=== PATIENT | male | born 1935 | race Caucasian/White ===

== ENCOUNTER 2016-07-07 18:15 | Inpatient (IN) | payer MEDICARE ==
--- NOTE | ~2016-07-07 | CR72 ---
[facility] A Service of [facility] & [facility] RADIOLOGY TEXT RESULTS PATIENT: KELSIE LESLIE LOCATION: [facility] 304- : 37 UNIT #: [id number] AGE: [address]: Raji Lopez MD SEX: M ORDER DR: [id number] [facility] [address] [place], [place] [address] [id number] I MR#: [id number] Acc #: [id number] NAME: KELSIE LESLIE : 1935 SEX: M STUDY DATE/TIME: 07/09/2016 15:48 UNIT: [address] ROOM: [facility] STUDY DESCRIPTION: CR Chest Single View Portable Attending Physician: Raji Lopez M.D. Referring Physician: Korey Bravo M.D. Ordering Physician: Patito Lynch M.D. Primary Care Physician: Korey Bravo M.D. MEDICAL IMAGING REPORT This report is preliminary unless electronic signature is present EXAM Portable chest INDICATION Evaluate for pneumothorax following right thoracentesis. This was performed today. FINDINGS Cardiomegaly and vascular congestion are noted, patient has undergone right thoracentesis. Small amount of residual right pleural fluid is present. I do not see any evidence of pneumothorax. There appears to be a nodule at the left lung base, somewhat obscured by overlying atelectasis. Left-sided pacemaker is present. Again no pneumothorax is seen. Dictated by... Patito Lynch M.D. THIS IS AN ELECTRONICALLY VERIFIED REPORT Patito Lynch M.D. at 07/12/2016 5:12 PM AFF/rnr TD: 07/09/2016 21:57 JOB #: [id number] MEDICAL IMAGING REPORT COPY
--- NOTE | ~2016-07-07 | CR72 ---
[facility] A Service of [facility] RADIOLOGY TEXT RESULTS PATIENT: KELSIE LESLIE LOCATION: [facility] 304-01 : 37 UNIT #: [id number] AGE: [address]: Raji Lopez MD SEX: M ORDER DR: [id number] [facility] [address] [place], [place] [address] [id number] MR#: [id number] Acc #: [id number] NAME: KELSIE LESLIE : 1935 SEX: M STUDY DATE/TIME: 07/07/2016 19:25 UNIT: [facility] ROOM: STUDY DESCRIPTION: CR Chest Single View Portable Attending Physician: Tim Pacheco D.O. Referring Physician: Korey Bravo M.D. Ordering Physician: Tim Pacheco D.O. Primary Care Physician: Korey Bravo M.D. MEDICAL IMAGING REPORT This report is preliminary unless electronic signature is present EXAM Portable chest 07/07/2016 HISTORY 81-year-old male with shortness of air and cough for a few days. COMPARISON STUDIES Chest 01/09/2016. FINDINGS 3 frontal views of the chest were performed. There is stable cardiomegaly. There is mild bibasilar atelectasis. A small amount of pleural fluid noted along the right minor fissure. A small right pleural effusion is not excluded. No pneumothorax. Mediastinal and pulmonary vasculature are within normal limits. There are mild bilateral interstitial opacities, and early congestive failure not excluded. Left-sided pacing complex. IMPRESSION Cardiomegaly with hazy mild bilateral interstitial opacities. Early congestive failure not excluded in the appropriate clinical setting. There is a suspected trace right pleural effusion with a small amount of pleural fluid in the right minor fissure. Dictated by... Nolan Lockhart M.D. THIS IS AN ELECTRONICALLY VERIFIED REPORT Nolan Lockhart M.D. at 07/08/2016 4:14 PM JFRACISCO/pcl [facility] A Service of [facility] RADIOLOGY TEXT RESULTS PATIENT: KELSIE LESLIE LOCATION: [facility] 304-01 : 37 UNIT #: [id number] AGE: [address]: Raji Lopez MD SEX: M ORDER DR: TD: 07/07/2016 21:47 JOB #: [id number] MEDICAL IMAGING REPORT COPY
--- NOTE | ~2016-07-07 | CO ---
Unit #: [id number] #: [id number] Patient: KELSIE LESLIE [id number] [address] [place], [place] [address] [id number] I MR#: [id number] NAME: KELSIE LESLIE ROOM: 304 Age: 81 Sex: M Admission Date: 07/07/2016 : 1935 Attending Physician: Raji Lopez M.D. Primary Care Physician: Korey Bravo M.D. Requesting Physician: Korey Bravo M.D. CONSULTATION REPORT CHIEF COMPLAINT Left upper lobe 3.4 cm mass positive for non-small lung cancer, adenocarcinoma that is a 7 mm mass in the left lower lobe, multiple medical problems. HISTORY OF PRESENT ILLNESS This is a 81-year-old male who started smoking at the age of 11. He had been smoking one pack per day for almost 70 years. He came to the hospital, was short of breath, dyspnea on exertion. CT of the chest showed right-sided middle infiltrate pneumonia, pleural effusion. He had a thoracentesis where 1.4 L was taken, pathology negative. On the left side there is a 3.4 x 2.4 cm mass in the left lower lobe. There is a 7 mm mass in the left upper lobe. Biopsy of the left lower lobe mass is positive for adenocarcinoma, I spoke to the pathologist. At present, he is improving and he wants to go home. He has atrial fibrillation, taking Coumadin for a long time. He also has a right lower extremity bleeding, it is unsupported. His anticoagulation is off. He is planning to restart on low dose Eliquis. He had on and off hemoptysis but is stable. CBC showed WBC 14.8, hemoglobin 8.7, MCV 79, platelets 16. His creatinine is 0.7. LFTs are normal. Iron studies are pending. At present he is comfortable, short of breath is stable. REVIEW OF SYSTEMS CONSTITUTIONAL: No fever, no chills, no sweats, no weight loss. EYES: No visual symptoms. EARS, NOSE AND THROAT: There is no runny nose or sore throat or difficulty hearing. CARDIOVASCULAR: No chest pain. No shortness of breath. No palpitations. No orthopnea. No PND. RESPIRATORY: As mentioned above. GASTROINTESTINAL: No nausea, vomiting, diarrhea, constipation, hematochezia or melena. GENITOURINARY: No urinary frequency, hesitancy or urgency. No blood in the urine. MUSCULOSKELETAL: No muscle or joint pain. NEUROLOGIC: No headache. No numbness or tingling. No weakness. No seizure. PSYCHIATRIC: No anxiety, depression or mood disturbance. Unit #: [id number] #: [id number] Patient: KELSIE LESLIE ENDOCRINE: No excessive urination or thirst. DERMATOLOGIC: No rash or change in the skin. ALLERGIC/IMMUNOLOGIC: No symptoms. HEMATOLOGIC/LYMPHATIC: Denies any symptoms. PAST MEDICAL HISTORY 1. COPD. 2. Congestive heart failure. 3. Atrial fibrillation. 4. Pacemaker. 5. Long-term anticoagulation. ALLERGIES AND MEDICINE He is not sure. SOCIAL HISTORY As mentioned above, started smoking at the age of 11. Had been smoking one pack per day for almost 70 years. Denied alcohol abuse. 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 PAST SURGICAL HISTORY He has a colectomy. He has a resection of a superficial bladder cancer. No sign of disease. FAMILY HISTORY Mother had a cancer. PHYSICAL EXAMINATION VITAL SIGNS: Afebrile, pulse 76, respiratory rate 17, O2 saturations on 4 L 97%, blood pressure 140/70. GENERAL: Patient is comfortable. ECOG is 0. The patient is pleasant. HEENT: Moist mucosa. Pupils equally reactive to light. Extraocular muscles intact. Sclerae anicteric. No obvious bleeding from nasal mucosa or oral mucosa. Scalp normal. Hearing normal. NECK: No JVD. No lymphadenopathy. LYMPHATIC/HEMATOLOGIC: There is no palpable adenopathy in the neck, axilla or inguinal area. CARDIOVASCULAR: S1, S2. Regular rate and rhythm. No S3 or S4. RESPIRATORY: Chest symmetrical, normal. Clear to auscultation bilaterally. No wheezes, no rales, no rhonchi. No dullness to percussion. ABDOMEN/GASTROINTESTINAL: Abdomen is soft, nontender, nondistended. No hepatosplenomegaly. EXTREMITIES: There is no clubbing, no cyanosis, no edema. No varicose veins. NEUROLOGICAL: Patient is alert, awake and oriented x3. Cranial nerves II-XII are intact. Sensory grossly intact. Motor is 4/5 in all four extremities. Gait is normal. Station is normal. Language is normal. Memory is normal. DTRs +2 in all four extremities. MUSCULOSKELETAL: No joint swelling. No bony tenderness. No muscle tenderness. SKIN: No petechiae, no rash, no ecchymosis. PSYCHIATRIC: No anxiety. No delusions or hallucinations. There is no agitation. Eye contact is normal. Affect is appropriate. There is no flight of ideas. DIAGNOSTIC STUDIES LABORATORY STUDIES: As mentioned above. Unit #: [id number] #: [id number] Patient: KELSIE LESLIE IMAGING STUDIES: Study mentioned above. PATHOLOGY: Mentioned above. ASSESSMENT AND PLAN This is a 81-year-old male who has the following active issues: 1. Non-small cell lung cancer: The patient has two masses in the left side of the lung. Biopsy of the dominant left lower lobe mass is adenocarcinoma. There is another lesion in the left upper lobe, it is 7 mm. The patient looks like two independent primaries. I had extensive discussion with patient and Dr. Kaur. As an outpatient we will do PET scan and also MRI of the brain. He will benefit from STRDP. He cannot tolerate chemotherapy. He is not a candidate for surgery. He weighs about 325 pounds and he has end stage COPD. His prognosis is guarded. 2. Anemia: MCV is low. Will check iron studies. 3. Other conditions: The patient has atrial fibrillation. He has a right lower extremity bleeding. He has some hemoptysis. I talked to the primary care and will start him on Eliquis low dose 2.5 mg b.i.d., in the future will increase. He has COPD, pneumonia, CHF, at present is stable. 1. Dictated by... Karla Henley M.D. Becky TD: 07/13/2016 13:47 JOB #: [id number] CONSULTATION REPORT X Karla Henley MD CONSULTATION REPORT
--- NOTE | ~2016-07-07 | DS ---
Unit #: [id number] #: [id number] Patient: KELSIE LESLIE [id number] [address] [place], [place] [address] [id number] I MR#: [id number] NAME: KELSIE LESLIE ROOM: 304 Age: 81 Sex: M Admission Date: 07/07/2016 : 1935 Discharge Date: Attending Physician: Raji Lopez M.D. Referring Physician: Korey Bravo M.D. Primary Care Physician: Korey Bravo M.D. DISCHARGE SUMMARY ADDENDUM Kindly note, there is a discharge summary dictated by Dr. Dave Kelesy on the and this is an addendum to the discharge summary. In the last few days, the patient got a lung biopsy done. The biopsy came back as positive for adenocarcinoma. Oncology was consulted. They evaluated the patient and recommended he requires radiation, not a candidate for any surgery or chemotherapy. Radiologist/oncologist also evaluated the patient. The plan is to get the patient outpatient PET scan, MRI, and then follow with oncology and radiation oncology to plan further management for his lung cancer. All the discharge instructions were explained in detail to the patient. I spoke with the radiation oncologist this morning and outpatient followup arrangements are being made by oncology and radiation oncology. I discussed the plan with the patient and he is agreeable to go to the rehab. PHYSICAL EXAMINATION On the day of the discharge, his physical examination: VITAL SIGNS: Temperature 97.9, pulse rate 71, respiratory rate 20, blood pressure 115/63. GENERAL: Patient is alert and oriented x3, lying in the bed, no acute distress. HEENT: Normocephalic and atraumatic. No icterus. PERRLA. Extraocular muscles intact. NECK: Supple. No JVD. HEART: S1, S2. Regular rate and rhythm. CHEST: Bilateral equal air entry. Bilateral rhonchi. ABDOMEN: Soft, nontender. EXTREMITIES: Trace edema. Normal pulses. DISCHARGE MEDICATIONS 1. ProAir q.4 p.r.n. shortness of breath. 2. Symbicort two puffs twice daily. 3. Flomax 0.4 mg at bedtime. 4. Tylenol 650 q.6 p.r.n. 5. Mupirocin 22 g topical to be applied to the right ankle. 6. Gabapentin 600 mg p.o. twice a day. 7. Paxil 40 mg daily. 8. Zofran 4 mg q.6 p.r.n. nausea and vomiting. 9. Nicotine 21 mg topically daily. 10. Klonopin 0.5 mg p.o. q.8 hours. 11. Metoprolol 25 mg p.o. twice a day. 12. Breo Ellipta 100/25 mcg inhalation one puff daily. 13. Lasix 20 mg in the morning. Unit #: [id number] #: [id number] Patient: KELSIE LESLIE 14. Humibid 600 mg p.o. twice a day. 15. Zocor 20 mg at bedtime. 16. Proscar 5 mg in the morning. 17. Aspirin 81 mg daily. 18. Protonix 40 mg daily. 19. KCl 20 mEq p.o. twice a day. 20. Eliquis 5 mg p.o. twice a day. PLAN The patient is instructed to follow with oncology and radiation oncology, primary care, and pulmonary as an outpatient. I spoke with the patient case manager and she is working on the arrangements for the transfer. Total time spent in his care, 35 minutes. Dictated by... Raji Lopez M.D. Carol TD: 07/14/2016 14:38 JOB #: [id number] DISCHARGE SUMMARY X X DISCHARGE SUMMARY
--- NOTE | ~2016-07-07 | HP ---
Unit #: [id number] #: [id number] Patient: KELSIE LESLIE [id number] [address] [place], [place] [address] [id number] I MR#: [id number] NAME: KELSIE LESLIE ROOM: 64817 Age: 81 Sex: M Admission Date: 07/07/2016 : 1935 Attending Physician: Sandy Hammer M.D. Referring Physician: Korey Bravo M.D. Primary Care Physician: Korey Bravo M.D. HISTORY AND PHYSICAL CHIEF COMPLAINT Anemia with right calf hematoma, COPD exacerbation. HISTORY OF PRESENT ILLNESS This pleasant 81-year-old male with chronic atrial fibrillation, status post permanent pacemaker insertion, nonobstructive CAD, COPD, is admitted for increasing shortness of breath and right leg edema. Two weeks ago, the patient noted increasing bruising over his distal right lower extremity and discomfort. He has been more short of breath over the past week with bronchospasm and a deep cough productive of armstrong sputum. He was actually seen by Dr. Jacques last week who started new inhalers and plans for a CT scan of the chest. The patient presents to this emergency department where he has a hematoma over the right calf. Chest x-ray is suspicious for pneumonia versus congestive heart failure. He is also noted to be increasingly anemic with a hematocrit of 27.4 with microcytic indices. He is heme-negative from below, and urinalysis does not reveal hematuria. In the ER, he was given 125 mg of Solu-Medrol, 2 grams of Rocephin and doxycycline. PAST MEDICAL HISTORY 1. Nonobstructive coronary artery disease. Ejection fraction was normal in 2014. Patient has chronic atrial fibrillation is status post permanent pacemaker and is maintained on Coumadin. The patient tells me that Coumadin is to be discontinued and plans are for Eliquis to start in a few days. 2. Hyperlipidemia. 3. COPD. 4. Obstructive sleep apnea on CPAP. 5. Abdominal aortic aneurysm measuring 3.[address] scan September 2012. 6. Questionable history of hepatitis. 7. Gout. 8. Spinal stenosis. 9. BPH. 10. Invasive transitional cell bladder cancer diagnosed 2014. The patient underwent a TURBT of the bladder tumor again in September 2015. Reports a recent negative cystoscopy. 11. Admission in 2014 for erosive duodenitis. On colonoscopy, the patient was also noted to have three large polyps which were removed. ALLERGIES Claritin. HOME MEDICATIONS Unit #: [id number] #: [id number] Patient: KELSIE LESLIE 1. Klonopin 0.5 mg t.i.d. 2. Avodart 5 mg daily. 3. Lasix 20 mg q.a.m. 4. Metoprolol 25 mg b.i.d. 5. Protonix 40 mg daily. 6. Paxil 40 mg daily. 7. Potassium 20 mEq b.i.d. 8. Zocor 20 mg h.s. 9. Flomax 0.4 mg two tablets daily. 10. Coumadin which was discontinued today. 11. Incruse 62.5 mcg one puff daily. 12. Breo 100/25 daily. 13. ProAir q.i.d. p.r.n. 14. Neurontin 600 mg b.i.d. 15. Vitamin B6, calcium, fish oil, vitamin C, vitamin E, multivitamin. 16. Aspirin 81 mg Tuesday, Tuesday, and Tuesday. SOCIAL HISTORY The patient lives at assisted living. He has a 84-[id number]-yhfa history of smoking. He continues to smoke one pack per day of tobacco. Does not drink alcohol. Uses an electric wheelchair. FAMILY HISTORY CAD. REVIEW OF SYSTEMS Notable for shortness of breath, productive cough, increasing pain and swelling of the right leg, above-mentioned surgeries, DJD, right hip replacement as well, nonobstructive coronary artery disease, permanent pacemaker, atrial fibrillation, hyperlipidemia, COPD, AIDAN, aneurysm, gout, spinal stenosis, BPH, wound over the right ankle, immobilization syndrome, some diarrhea and bladder cancer. All other systems were reviewed and are negative. PHYSICAL EXAMINATION VITAL SIGNS: Temperature 98.1, pulse 60, respirations 16, blood pressure 113/50, O2 saturation 97% on 2 liters of oxygen. GENERAL: Very pleasant, obese 81-year-old male currently in no acute distress. HEENT: Eyes PERRLA. Extraocular muscles are intact. Pharynx benign with dry mucosal membranes. NECK: Supple without adenopathy or thyromegaly. Some elevation of the JVD noted. CHEST: Expiratory wheezes. HEART: Normal S1, S2 with no definite murmur. ABDOMEN: Bowel sounds are present. No definite hepatosplenomegaly, tenderness or masses. EXTREMITIES: Notable for edema of the right leg as compared to the left with a wound over the right lateral malleolus. Pedal pulses are diminished but present by Doppler. There is quite a bit of bruising of the distal right lower extremity with a right lateral calf hematoma. RECTAL: Heme-negative per the ER physician. NEUROLOGIC: Awake, alert, oriented. Cranial nerves are intact. Equal strength throughout but is quite weak on exam. DIAGNOSTIC STUDIES LABORATORY: Hematocrit 27.4 down from 30.5 in December 2015. MCV is 80. White blood cell count 11.6, platelet count 132. SMA-12 CO2 is 32, Unit #: [id number] #: [id number] Patient: KELSIE LESLIE albumin 3.2. BNP 217. Lactic acid normal. Cardiac markers are negative. INR 4.4, PTT 46.7. Urinalysis is unremarkable. IMAGING: Chest x-ray cardiomegaly, hazy, mild opacities bilaterally. Cannot exclude congestive heart failure. Small right pleural effusion. Doppler of the right leg is negative for DVT. CARDIOVASCULAR: EKG shows a paced ventricular rhythm, rate 60. ASSESSMENT 1. Right calf hematoma with mild Coumadin toxicity. Patient also has a wound over the right lateral malleolus. 2. Uuaca-gy-yqugwbu microcytic anemia, likely related to blood loss right leg. Patient was heme-negative on exam and urinalysis is negative for hematuria. 3. Increasing shortness of breath secondary to chronic obstructive pulmonary disease exacerbation which may represent community-acquired pneumonia versus bronchitis, rule out congestive heart failure. 4. Nonobstructive coronary artery disease with normal left ventricular function status post permanent pacemaker insertion for sick sinus syndrome and atrial fibrillation. 5. Obstructive sleep apnea on CPAP. 6. Tobacco use. 7. Peripheral vascular disease with abdominal aortic aneurysm. 8. Benign prostatic hypertrophy. 9. Spinal stenosis. PLAN 1. Vitamin K, discontinue Coumadin. Plans are to start Eliquis later this week per patient. Will monitor hemoglobin and hematocrit for now. 2. Steroids, antibiotics, check CT scan of the chest and consult Dr. Jacques. I will also write for DuoNeb. 3. One small dose of IV Lasix pending further workup. 4. Stool cultures. 5. Further workup and consultants depending on above. Dictated by Sandy Hammer M.D. AML/cs TD: 07/07/2016 23:24 JOB #: [id number] CC: Kiet HISTORY AND PHYSICAL X Sandy Hammer MD HISTORY AND PHYSICAL
--- NOTE | ~2016-07-07 | XA203 ---
[facility] A Service of [facility] & [facility] RADIOLOGY TEXT RESULTS PATIENT: KELSIE LESLIE LOCATION: [facility] 304- : 37 UNIT #: [id number] AGE: [address]: Raji Lopez MD SEX: M ORDER DR: [id number] [facility] [address] [place], [place] [address] [id number] I MR#: [id number] Acc #: [id number] NAME: KELSIE LESLIE : 1935 SEX: M STUDY DATE/TIME: 07/09/2016 16:15 UNIT: [facility] ROOM: [facility] STUDY DESCRIPTION: XA Thoracentesis Attending Physician: Raji Lopez M.D. Referring Physician: Korey Bravo M.D. Ordering Physician: Antione Jacques M.D. Primary Care Physician: Korey Bravo M.D. MEDICAL IMAGING REPORT This report is preliminary unless electronic signature is present EXAM Ultrasound-guided right thoracentesis. INDICATION Right pleural effusion. PROCEDURE The risks, benefits, and alternatives to the procedure were explained to the patient, and signed, informed consent was obtained. He was seated in the upright position. Preliminary ultrasound of the right hemithorax was performed which demonstrated a large volume of fluid. This image was permanently saved. Overlying skin was marked. Patient was prepped and draped in the usual sterile fashion. Time-out was performed as per protocol. Skin and subcutaneous tissues were anesthetized with buffered lidocaine. Wamieh catheter was advanced into the fluid with aspiration of serous material. The catheter was hooked to suction tubing. There was evacuation of a total of 1.4 L of serous material. Catheter was then removed and manual pressure was applied until hemostasis was obtained. IMPRESSION Technically successful ultrasound-guided right thoracentesis with evacuation of 1.4 L of serous material. Ultrasound was used during the procedure and permanent images were saved. Dictated by... Patito Lynch M.D. THIS IS AN ELECTRONICALLY VERIFIED REPORT Patito Lynch M.D. at 07/12/2016 5:09 PM AFF/tmw [facility]. [facility] A Service of [facility] RADIOLOGY TEXT RESULTS PATIENT: KELSIE LESLIE LOCATION: [facility] 304-01 : 37 UNIT #: [id number] AGE: [address]: Raji Lopez MD SEX: M ORDER DR: TD: 07/12/2016 10:12 JOB #: [id number] MEDICAL IMAGING REPORT COPY
--- NOTE | ~2016-07-07 | CT57 ---
[facility] A Service of [facility] & [facility] RADIOLOGY TEXT RESULTS PATIENT: KELSIE LESLIE LOCATION: [facility] 304-01 : 37 UNIT #: [id number] AGE: [address]: Raji Lopez MD SEX: M ORDER DR: [id number] [facility] [address] [facility]. [place], [place] [address] [id number] MR#: [id number] Acc #: [id number] NAME: KELSIE LESLIE : 1935 SEX: M STUDY DATE/TIME: 07/07/2016 23:44 UNIT: CEDOF ROOM: 49705 STUDY DESCRIPTION: CT Chest Wo Cont Attending Physician: Sandy Hammer M.D. Referring Physician: Korey Bravo M.D. Ordering Physician: Sandy Hammer M.D. Primary Care Physician: Korey Bravo M.D. MEDICAL IMAGING REPORT This report is preliminary unless electronic signature is present EXAM CT scan of the chest without contrast, 07/07/2016 HISTORY Shortness of breath and generalized weakness for 3 days worsening today, emphysema, COPD exacerbation and atrial fibrillation with right leg swelling. TECHNIQUE Spiral CT was performed through the chest without intravenous contrast administration, as per clinician request. This CT exam was performed with one or more of the following radiation dose reduction techniques: Automatic exposure control, adjustment of mA and/or kV according to patient size, and iterative reconstruction. FINDINGS The examination is limited by the lack of intravenous contrast. It is also limited by the patient's large body habitus with resulting artifact. Examination is abnormal, demonstrating a 2.4 cm x 3.4 cm mass in the left lower lobe concerning for neoplasm. This would be amenable to percutaneous biopsy, if clinically indicated. There is also a 7-mm nodule located in the posterior left upper lobe. Moderate-sized right pleural effusion with atelectasis or infiltrates in the right middle lobe and right lower lobe. Lungs are otherwise clear. The heart is minimally enlarged. There is no significant thoracic adenopathy. Findings were called to the ordering clinician at 12:20 a.m. on 07/08/2016. IMPRESSION 1. Abnormal examination demonstrating a 3.4 cm x 2.4 cm solid mass in the left lower lobe suspicious for neoplasm. There is also a 7-mm nodule in the posterior left upper lobe. 2. Interstitial infiltrates are seen bilaterally, which may represent mild pulmonary edema. [facility]. [facility] A Service of [facility] & [facility] RADIOLOGY TEXT RESULTS PATIENT: KELSIE LESLIE LOCATION: [facility] 304-01 : 37 UNIT #: [id number] AGE: [address]: Raji Lopez MD SEX: M ORDER DR: 3. Moderate right pleural effusion with infiltrates and/or atelectasis in the right middle lobe and right lower lobe. 4. Mild cardiac enlargement. STAT * RESULT Dictated by... Ismael Stauffer M.D. THIS IS AN ELECTRONICALLY VERIFIED REPORT Ismael Stauffer M.D. at 07/08/2016 10:12 PM KRT/naima TD: 07/08/2016 00:25 JOB #: [id number] MEDICAL IMAGING REPORT COPY
--- NOTE | ~2016-07-07 | CO ---
Unit #: [id number] #: [id number] Patient: GUME ZAPATA [id number] [address] [place], [place] [address] [id number] MR#: [id number] NAME: GUME ZAPATA ROOM: 304 Age: 81 Sex: M Admission Date: 07/07/2016 : 1935 Attending Physician: Raji Lopez M.D. Primary Care Physician: Korey Bravo M.D. Requesting Physician: Kroey Bravo M.D. 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 CHIEF COMPLAINT Extraordinary shortness of breath and swelling of the right lower leg. HISTORY OF PRESENT ILLNESS Mr. Gume Zapata is a 81-year-old gentleman who suffers from chronic obesity and shortness of breath. He has amassed a 70 pack-year history of smoking. He was admitted to the hospital with acute shortness of breath, as well as extreme swelling of his right lower leg. He had been on blood thinners and had a massive hematoma. Patient was noted to have a large pleural effusion on the right side. He had thoracentesis with 1.5 liters of fluid removed with pathology only remarkable for suspicious cells. Patient proceeded to have an ultrasound-guided needle biopsy of the left lower lobe mass which measured 2.4 x 3.4 cm in diameter. He was also noted to have a smaller 7 mm mass in the left upper lobe. This was positive for adenocarcinoma. The patient had no obvious mediastinal or hilar adenopathy associated with this lesion. Patient has numerous medical problems. He has atrial fibrillation, on long-term Coumadin therapy, but he has discontinued with this and started on low-dose Eliquis. Mr. Zapata has numerous other problems as well including obstructive sleep apnea, on CPAP machine, and severe COPD. He has been stabilized now and breathing much better. He will likely be discharged in the next 24 hours and proceed to [facility]. I have discussed his case extensively with Dr. Constanza Henley. Patient will need an outpatient PET CT scan, as well as MRI of the brain to complete staging workup. I have been asked to see him today regarding the possibility of definitive radiotherapy. RECOMMENDATIONS Mr. Zapata is a gentleman who is certainly a very poor candidate for any type of definitive surgical procedure. His lungs are not good with significant COPD and as noted has a tendency for significant pleural effusion. He is morbidly obese, on multiple blood thinners, and would be better served with definitive radiotherapy. Tentative plans will be to proceed with therapy to the dominant left lower lobe mass with plans to deliver a total of 60 Gy over 5 fractions. The left upper lobe mass could also be treated at this time depending on PET findings. Hopefully, patient will have no evidence of further metastatic disease. We await discharge from [facility], as well as release from rehabilitation before proceeding with definitive management. A delay of one to two weeks should not impact his overall treatment course. Unit #: [id number] #: [id number] Patient: GUME ZAPATA It is certainly my pleasure to participate in his care. PAST MEDICAL HISTORY 1. Blood loss anemia. 2. Right calf hematoma. 3. Coumadin toxicity. 4. Acute respiratory failure. 5. Sleep apnea, on CPAP. 6. History of pneumonia. MEDICATIONS 1. ProAir q.i.d. 2. Flomax 0.8 mg at bedtime. 3. Bactroban twice daily. 4. Neurontin 600 mg b.i.d. 5. Paxil 40 mg daily. 6. Clonazepam 0.5 mg t.i.d. 7. Metoprolol 25 mg b.i.d. 8. Breo Ellipta 1 puff daily. 9. Lasix 20 mg daily. 10. Simvastatin 20 mg daily. 11. Finasteride 5 mg in the morning. 12. Aspirin 81 mg daily. 13. Protonix 40 mg daily. 14. Potassium 20 mEq b.i.d. 15. Doxycycline 100 mg b.i.d. for 5 days. 16. Prednisone taper. 17. Eliquis. 18. Iron supplement. ALLERGIES No known drug allergies. NUTRITIONAL STATUS Stable though patient's weight changes dramatically due to diuresis, as well as thoracentesis. SOCIAL HISTORY As noted, patient is a long-term smoker, a pack a day for 70 years. He started smoking at age 11. He denies alcohol abuse. 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 PAST SURGICAL HISTORY 1. Previous colectomy. 2. Resection of superficial bladder cancer. He has had no evidence of recurrent disease. FAMILY HISTORY Mother had unknown malignancy. REVIEW OF SYSTEMS Patient denies seizure activity. He has been extremely short of breath. He denies hemoptysis, hematemesis, and difficulty with GI or with the exception of prostatism and urinary outflow obstruction. PHYSICAL EXAMINATION VITAL SIGNS: Temperature 97.9, pulse 71, respirations 20, O2 saturation Unit #: [id number] #: [id number] Patient: GUME ZAPATA 97% currently on 4 liters O2, and blood pressure 115/63. Height 5 feet 10, weight 315 pounds. HEENT: Pupils are equal, round, and reactive to light and accommodation. Extraocular movements within normal limits. NECK: Without palpable adenopathy. LUNGS: Auscultated breath sounds demonstrate mild wheezing and coarse rhonchi particularly in the right lung field. CARDIOVASCULAR: Atrial fibrillation with irregular heartbeat. No obvious murmur. ABDOMEN: Markedly obese. Bowel sounds hyperactive. Abdomen nontender. EXTREMITIES: Resolving hematoma of the right lateral calf. Patient has extensive bruising and bleeding in the entire lower leg beneath the knee. There is still an area measuring some 6 x 4 cm thought to be resolving hematoma. No obvious edema at this time. Patient has had significant diuresis. GENITORECTAL: Not performed. NEUROLOGIC: No focal neurological deficits appreciated. DIAGNOSTIC STUDIES LABORATORY: Glucose 101, creatinine 0.8, sodium 4.4, chloride 94, and albumin 3.3. Liver enzymes within normal limits. WBC 19.2, hemoglobin 8.7, and platelet count 161,000. Approximately 65 minutes spent discussing case with patient. Dictated by... Yolande Singleton TD: 07/14/2016 15:03 JOB #: [id number] CC: Yolande Laureano M.D. CONSULTATION REPORT X Yousif Kaur MD X CONSULTATION REPORT
--- NOTE | ~2016-07-07 | EKG ---
PATIENT: KELSIE LESLIE UNIT #: [id number] Ventricular Rate: 60 BPM Atrial Rate: 63 BPM QRS Duration: 136 ms Q-T Interval: 452 ms QTC Calculation(Bezet): 452 ms Calculated R Medina: -20 degrees Calculated T Medina: 126 degrees Diagnosis Line: Ventricular-paced rhythm Diagnosis Line: Abnormal ECG Diagnosis Line: When compared with ECG of 09-JAN-2016 18:44, Diagnosis Line: Electronic ventricular pacemaker has replaced Diagnosis Line: Atrial fibrillation Diagnosis Line: Vent. rate has decreased BY 48 BPM Diagnosis Line: Confirmed by KRIS REINA MD ([id number]) on 07/08/2016 Diagnosis Line: 7:06:10 AM INTERPRETING MD: LATOSHA BREWER
--- NOTE | ~2016-07-07 | BMI ---
[facility] Nutrition Therapy DATE: 07/09/16 Patient: KELSIE LESLIE Physician: ARGELIA Address: [address] [place] [address] Room/Bed: [address] [place] [address], Zip: [place] [address] Admit Date: 07/07/16 Date of : 37 Height: 5 10 Weight: 313 142 HIGH BMI NOTE: ANTHROPOMETRICS: HT: 70" WT: 142 KG BMI: 45 INTERVENTION: 1. HEART HEALTHY/ CONSISTENT CARBOHYDRATE DIET RECOMMENDATIONS: 1. CONTINUE CURRENT DIET TO PROMOTE GRADUAL WEIGHT LOSS TOWARDS HEALTHY BMI RANGE. Respectfully, LEAH WIGGINS RD, LD Food and Nutritional Services [facility] cc: client file
--- NOTE | ~2016-07-07 | CO ---
Unit #: [id number] #: [id number] Patient: KELSIE ZAPATA [id number] [address] [place], [place] [address] [id number] MR#: [id number] NAME: KELSIE ZAPATA ROOM: 304 Age: 81 Sex: M Admission Date: 07/07/2016 : 1935 Attending Physician: Raji Lopez M.D. Primary Care Physician: Korey Bravo M.D. Consultation Date: 07/07/2016 CONSULTATION REPORT CHIEF COMPLAINT Leg swelling. HISTORY OF PRESENT ILLNESS A 81-year-old gentleman who had been seen by Dr. Walker in the past who has a variety of medical problems including sleep apnea, COPD and an abnormal CAT scan. He had missed at least one if not more appointments for repeat CAT scan. I evaluated him in the office recently. His inhaled medications were adjusted. He is scheduled for outpatient reevaluation of his sleep apnea. He was instructed not to smoke and a CT scan was ordered. He presented to the hospital with leg discomfort and swelling. He was found to have hematoma and mild Coumadin toxicity. He tells me that his plant breeder scientist, Dr. Yan, is transitioning him from Coumadin to Eliquis but that has not yet occurred. He has had wheezing, some cough with minimal sputum production, no fever, no hemoptysis, no chest pain. PAST MEDICAL HISTORY Extensive and is remarkable for COPD, obstructive sleep apnea on CPAP, ongoing active tobacco use, chronic atrial fibrillation, nonobstructive coronary artery disease, morbid obesity and immobilization, basically in a wheelchair, peripheral vascular disease with abdominal aortic aneurysm, gout, chronic back pain with spinal stenosis, bladder cancer, duodenitis and colonic polyps, pulmonary hypertension with an echo in 2014 with normal EF, estimated RVSP of 50. There was also significant mitral regurgitation. SOCIAL HISTORY He continues to smoke. FAMILY HISTORY No familial lung disease. ALLERGIES Claritin which causes itching. MEDICATIONS AT HOME 1. Breo one puff a day. 2. Incruse one puff day was recently started and he said that was beneficial. 3. Albuterol as needed. He is not on oxygen at home, although he had been on oxygen in the past. He is on CPAP but has an old machine and he is currently undergoing evaluation for a new machine. Unit #: [id number] #: [id number] Patient: KELSIE ZAPATA Other medications he cannot recite but, according to a medication reconciliation sheet, he is on: 1. Clonazepam. 2. Finasteride. 3. Lasix. 4. Metoprolol. 5. Protonix. 6. Paxil. 7. Potassium. 8. Simvastatin. 9. Flomax. 10. Coumadin. 11. Gabapentin. 12. Zoya aspirin. REVIEW OF SYSTEMS No abdominal pain, melena, hematochezia, trouble swallowing. No hematuria, dysuria. No focal weakness, paraesthesia. His activity is limited because of back pain. In fact, he could not even sit up in bed for a full examination. He can sit up with assistance. Of course, he has had this leg swelling and tightness, found to be a hematoma. No chest pain or palpitations, fever, chills, weight loss. Further review of systems negative. PHYSICAL EXAMINATION GENERAL APPEARANCE: A gentleman who is in no acute distress, afebrile. VITAL SIGNS: Pulse 55. Respiratory rate 18. Blood pressure 134/75. He is 5'10", 315 lb. BMI is 45. HEENT: Pupils equal, round and reactive to light. Sclerae anicteric. Head: Atraumatic. NECK: Supple. No supraclavicular or cervical adenopathy appreciated. Mucous membranes moist with a Mallampati Class 4 oropharynx. CHEST: Diffuse expiratory wheeze. Lateral examination suggests decreased breath sounds on the right base. Posterior auscultation could not be performed. CARDIAC: Distant heart tones. He has had an irregular rhythm, controlled rate. ABDOMEN: Soft, nontender. No hepatomegaly, rebound. EXTREMITIES: No clubbing, cyanosis. He does have some edema, right greater than left. It appears that he does have what certainly is consistent with hematoma on the right. He has chronic hyperpigmentation bilaterally. No acute rash noted. NEUROLOGIC: Grossly intact. No focal muscle or sensory deficits, although it is limited by his immobility. DIAGNOSTIC STUDIES LABORATORY: He had a blood gas last year with no hypercapnia. BUN is 21, creatinine 1.0. BNP 217. INR was 4.4, now 4.0. Cardiac enzymes negative. WBC count 10.5, hemoglobin 8.1, platelet count 137. Urinalysis unremarkable. Blood cultures were not performed, although pneumonia was considered. IMAGING: Chest x-ray: It looks like he has fluid in the fissure. CT scan: Fairly large right pleural effusion with fluid in the fissure. No evidence of definite pneumonia. He has a very prominent left lower lobe mass-like area. Rhythm strips are paced. Unit #: [id number] #: [id number] Patient: KELSIE ZAPATA IMPRESSION 1. Shortness of breath, multifactorial. 2. COPD with bronchospasm, doubt pneumonia. 3. Left lower lobe mass consistent with cancer. 4. Fairly large right pleural effusion with fluid in the fissure. I suspect this is going to be transudative but certainly must need to be confirmed. 5. Pulmonary hypertension. 6. Obstructive sleep apnea suspected under treated, undergoing outpatient evaluation. 7. Atrial fibrillation. 8. Mild Coumadin toxicity. 9. Leg hematoma. 10. Medical problems listed above. PLAN Maximize pulmonary status with steroids, nebulized bronchodilators, etc. Correct auto-PAP. Ultimately, he will need thoracentesis on the right effusion and FNA of his left mass. He will be placed on an auto-PAP machine here and will continue his outpatient evaluation for his sleep apnea. Continue antibiotics for now, check procalcitonin level, follow up cultures and likely discontinue antibiotics if all negative. Recheck echocardiogram. Certainly, no smoking is of great benefit and this, once again, was discussed with the patient. Thank you very much for allowing me to participate in the care of Mr. Zapata. Dictated by... Antione Jacques M.D. JUNITO/hremann TD: 07/08/2016 12:25 JOB #: [id number] CC: [email or web address] CONSULTATION REPORT X Antione Jacques MD X CONSULTATION REPORT
--- NOTE | ~2016-07-07 | DS ---
Unit #: [id number] #: [id number] Patient: KELSIE LESLIE [id number] [address] [address] [id number] I MR#: [id number] NAME: KELSIE LESLIE ROOM: 304 Age: 81 Sex: M Admission Date: 07/07/2016 : 1935 Discharge Date: 07/10/2016 Attending Physician: Raji Lopez M.D. Referring Physician: Korey Bravo M.D. Primary Care Physician: Korey Bravo M.D. DISCHARGE SUMMARY DISCHARGE DIAGNOSES 1. Acute blood loss anemia. 2. Right calf hematoma. 3. Coumadin toxicity. 4. Acute hypoxic respiratory failure. 5. Acute on chronic systolic heart failure. 6. Obstructive sleep apnea, on CPAP. 7. Chronic obstructive pulmonary disease exacerbation. 8. Pneumonia. HOSPITAL COURSE The patient is a 81-year-old male seen in [facility] emergency department with a complaint of right leg pain. The patient was evaluated and noted to have a hematoma in his right calf and laboratory testing revealed an anemia with a hemoglobin of 8.2. Additionally, the patient was noted to be hypoxic with oxygen saturations in the 80s in the emergency department and was noted to have a right pleural effusion and associated infiltrate. This was revealed on CT. Said CT also showed 3.4 cm x 2.4 cm solid mass in the left lower lobe concerning for neoplasm. As a result of the concerning mass, the patient was seen by pulmonary who has planned for a fine needle aspirate of left lower lobe mass as an outpatient. Additionally, the patient underwent thoracentesis for his right pleural effusion and 1.5 L of fluid were removed. Testing reveals transudate which was thought to be secondary to heart failure. The patient underwent chest x-ray after his thoracentesis that showed no pneumothorax. The patient's respiratory status improved markedly. In addition to the above, the patient was maintained on his Lasix and at this time has diuresed a total of 2.5 L and, again, feels better. The patient shall undergo a home O2 evaluation to see if he requires oxygen supplementation going forward. Regarding the patient's anemia, it was again felt to be secondary to his acute blood loss due to his hematoma. The patient's hemoglobin failed to drop significantly and no transfusion was required. The patient has been started on iron. His Coumadin has been discontinued and he has been started on Eliquis. His Eliquis should begin on 07/14. DISCHARGE MEDICATIONS 1. ProAir q.i.d. p.r.n. 2. Flomax 0.8 mg in the morning. 3. Bactroban to the right ankle topically twice a day. Unit #: [id number] #: [id number] Patient: KELSIE LESLIE 4. Neurontin 600 mg p.o. b.i.d. 5. Paxil 40 mg daily. 6. Incruse Ellipta, one puff inhaled daily. 7. Clonazepam 0.5 mg p.o. t.i.d. 8. Metoprolol tartrate 25 mg p.o. b.i.d. 9. Breo Ellipta, one puff daily. 10. Lasix 20 mg daily. 11. Simvastatin 20 mg p.o. q. h.s. 12. Finasteride 5 mg in the morning. 13. Zoya aspirin 81 mg daily. 14. Protonix 40 mg daily. 15. Potassium chloride 20 mEq p.o. b.i.d. 16. Doxycycline 100 mg p.o. b.i.d. x5 days. 17. Prednisone taper. 18. Eliquis 10 mg p.o. b.i.d. x7 days, then 5 mg p.o. b.i.d. to start on 07/14/16. 19. Iron gluconate 324 mg p.o. b.i.d. FOLLOWUP The patient should follow up with Dr. Prateek Matthews in two weeks. Dictated by... Yolande Catalan/shoshana TD: 07/10/2016 14:52 JOB #: [id number] DISCHARGE SUMMARY X Dave Kelsey MD X DISCHARGE SUMMARY
--- NOTE | ~2016-07-07 | US85 ---
[facility] A Service of [facility] RADIOLOGY TEXT RESULTS PATIENT: KELSIE LESLIE LOCATION: [facility] 304-01 : 37 UNIT #: [id number] AGE: [address]: Raji Lopez MD SEX: M ORDER DR: [id number] [facility] [address] [place], [place] [address] [id number] E MR#: [id number] Acc #: [id number] NAME: KELSIE LESLIE. : 1935 SEX: M STUDY DATE/TIME: 07/07/2016 18:49 UNIT: [facility] ROOM: STUDY DESCRIPTION: LE [employer]in [employer] or [employer] Stdy Attending Physician: Tim Pacheco D.O. Referring Physician: Korey Bravo M.D. Ordering Physician: Tim Pacheco D.O. Primary Care Physician: Korey Bravo M.D. MEDICAL IMAGING REPORT This report is preliminary unless electronic signature is present EXAM Ultrasound lower extremity veins unilateral, limited study, 07/07/2016 HISTORY Pain. Right lower extremity redness and pain. Pain for 2 weeks. Smoker. TECHNIQUE Venous ultrasound examination of the right lower extremity was performed using grayscale, spectral Doppler and color flow Doppler imaging. FINDINGS The examination is negative. There is no evidence of right lower extremity deep venous thrombus from the groin to the lower calf. Visualized greater saphenous vein is also patent. IMPRESSION Negative examination. No evidence of right lower extremity deep venous thrombosis. Dictated by... Carlos Multani M.D. THIS IS AN ELECTRONICALLY VERIFIED REPORT Carlos Multani M.D. at 07/08/2016 11:15 PM Renny TD: 07/07/2016 21:44 JOB #: [id number] MEDICAL IMAGING REPORT [facility] A Service of [facility] RADIOLOGY TEXT RESULTS PATIENT: KELSIE LESLIE LOCATION: [facility] 304-01 : 37 UNIT #: [id number] AGE: [address]: Raji Lopez MD SEX: M ORDER DR: HIRA
[~2016-07-07 18:15] MED LIST: ALBUTEROL17 GM INH; ALLER-FEX180 MG PO; ASPIRIN81 M2 PO; ATENOLOL PO; ATENOLOL50 MG PO; BAYER ASPIRIN325 M1 PO; BREO ELLIPTA 11 EACH INH; CLONAZEPAM0.5 MG PO; COUMADIN5 MG PO; COUMADIN7.5 MG PO; FAMCICLOVIR500 MG PO; FISH OIL 1,2001 CAP PO; FISH OIL 1,2001 EAC1 PO; FLEXERIL10 MG PO; FLOMAX0.4 M1 PO; FUROSEMIDE40 MG PO; ISORDIL PO; ISORDIL10 MG PO; K-DUR20 ME1 PO; KCL PO; KLONOPIN0.5 MG PO; LASIX PO; METOPROLOL TART25 MG PO; MULTI VITAMIN1 EACH PO; OMEGA 3-6-9 11200 M1 PO; PAROXETINE HCL40 M1 PO; PAXIL40 MG PO; PROTONIX PO; SIMVASTATIN20 MG PO; SYMBICORT INH; VITAMIN C500 M1 PO; VITAMIN C500 MG PO
[2016-07-07 19:04] LABS: INR 4.4; PARTIAL THROMBOPLASTIN TIME 46.7 SECONDS (23.5-31.3); PROTHROMBIN TIME (PATIENT) 48.8 SECONDS (9.6-11.5)
[2016-07-07 19:11] LABS: ALBUMIN SERUM 3.2 g/dL (3.5-5.0); ALKALINE PHOSPHATASE 93 U/L (32-92); ALT (SGPT) 13 U/L (10-40); AST (SGOT) 19 U/L (10-42); BILIRUBIN, DIRECT 0.3 mg/dL (0.0-0.2); BILIRUBIN,INDIRECT 0.7 mg/dL (0.0-0.9); BLOOD UREA NITROGEN 22 mg/dL (9-23); CALCIUM SERUM 8.4 mg/dL (8.4-10.2); CARBON DIOXIDE 32 mmol/L (22-31); CHLORIDE 100 mmol/L (100-111); GLOM FILT RATE Estimated ABOVE60 mL/min (>60); GLUCOSE FASTING 106 mg/dL (70-110); POTASSIUM 4.6 mmol/L (3.5-5.1); PROTEIN TOTAL SERUM 6.9 g/dL (6.0-8.3); SODIUM 137 mmol/L (135-145)
[2016-07-07 19:14] LABS: BASOPHIL# 0.1 X10e3 (0-0.3); BASOPHIL% 0.9 % (0-2.5); EOSINOPHIL# 0.1 X10e3 (0-0.7); EOSINOPHIL% 0.8 % (0.0-7.0); HEMATOCRIT 27.4 % (38.0-50.0); HEMOGLOBIN 8.2 gm/dL (13.0-16.0); LYMPHOCYTE# 0.9 X10e3 (1.0-3.5); MEAN CELL VOLUME 79.9 FL (83-96); MEAN CORPUSCULAR HEMOGLOBIN 23.9 PG (28-34); MEAN CORPUSCULAR HGB CONC 29.9 g/dL (30-36); MEAN PLATELET VOLUME 9.1 FL (6.5-11.5); MONOCYTE# 1.7 X10e3 (0-1.0); MONOCYTE% 14.7 % (3.0-12.0); NEUTROPHIL# 8.8 X10e3 (1.5-7.1); NEUTROPHIL% 75.6 % (40-75); PLATELET COUNT 132 X10e3 (140-420); RED BLOOD COUNT 3.42 X10e (3.90-5.60); RED CELL DISTRIBUTION WIDTH 21.9 % (11.0-15.5); WHITE BLOOD COUNT 11.6 X10e3 (4.0-10.5)
[2016-07-07 19:15] LABS: DIFF IND NO
[2016-07-07 19:19] LABS: POC - CKMB 2.5 ng/mL (0.0-7.9); POC - TROPONIN <0.05 ng/mL (<=0.05)
[2016-07-07 21:30] LABS: URINE SOURCE CLEAN CATCH
[2016-07-07 21:39] LABS: URINE APPEARANCE CLEAR; URINE BILIRUBIN NEG (NEG); URINE BLOOD NEG (NEG); URINE COLOR YELLOW; URINE GLUCOSE NEG (NEG); URINE KETONE NEG (NEG); URINE LEUKOCYTE ESTERASE NEG (NEG); URINE NITRATE NEG (NEG); URINE PH 6.5 (5-8); URINE PROTEIN NEG (NEG); URINE SPECIFIC GRAVITY 1.019 (1.003-1.035)
[2016-07-07 21:41] LABS: CULTURE INDICATED? NO
[2016-07-07] MEDS ORDERED: CLONAZEPAM0.5 MG PO (22:00)
[2016-07-07] MEDS ORDERED: FINASTERIDE5 MG PO (22:01)
[2016-07-07] MEDS ORDERED: METOPROLOL TAR25 MG PO (22:02)
[2016-07-07] MEDS ORDERED: LASIX20 MG PO (22:02)
[2016-07-07] MEDS ORDERED: PAROXETINE HCL40 MG PO (22:03)
[2016-07-07] MEDS ORDERED: PANTOPRAZOLE SO40 MG PO (22:03)
[2016-07-07] MEDS ORDERED: POTASSIUM CHLO20 ME1 PO (22:04)
[2016-07-07] MEDS ORDERED: SIMVASTATIN20 MG PO (22:05)
[2016-07-07] MEDS ORDERED: FLOMAX0.4 M1 DOB (22:06)
[2016-07-07] MEDS ORDERED: WARFARIN SODIUM6 M1 PO (22:09)
[2016-07-07] MEDS ORDERED: WARFARIN SODIUM3 M1 PO (22:10)
[2016-07-07] MEDS ORDERED: INCRUSE ELLI62.5 MCG INH (22:10)
[2016-07-07] MEDS ORDERED: BREO ELLIPTA 11 EACH INH (22:11)
[2016-07-07 22:13] LABS: POC - CKMB <1.0 ng/mL (0.0-7.9); POC - TROPONIN <0.05 ng/mL (<=0.05)
[2016-07-07] MEDS ORDERED: PROAIR RESPICL90 MCG (22:13)
[2016-07-07] MEDS ORDERED: GABAPENTIN600 MG PO (22:14)
[2016-07-07] MEDS ORDERED: ASPIRIN81 MG PO (22:16)
[2016-07-07] MEDS ORDERED: BAYER CHEWABLE81 MG PO (22:17)
[2016-07-08 05:29] LABS: BASOPHIL% 0.3 % (0-2.5); HEMOGLOBIN 8.1 gm/dL (13.0-16.0); LYMPHOCYTE# 0.3 X10e3 (1.0-3.5); LYMPHOCYTE% 3.1 % (17.0-45.0); MEAN CELL VOLUME 80.1 FL (83-96); MEAN CORPUSCULAR HEMOGLOBIN 23.9 PG (28-34); MEAN CORPUSCULAR HGB CONC 29.9 g/dL (30-36); MEAN PLATELET VOLUME 9.9 FL (6.5-11.5); MONOCYTE# 0.2 X10e3 (0-1.0); MONOCYTE% 1.7 % (3.0-12.0); NEUTROPHIL% 94.9 % (40-75); PLATELET COUNT 137 X10e3 (140-420); RED BLOOD COUNT 3.37 X10e (3.90-5.60); RED CELL DISTRIBUTION WIDTH 21.7 % (11.0-15.5); WHITE BLOOD COUNT 10.5 X10e3 (4.0-10.5)
[2016-07-08 05:34] LABS: DIFF IND NO
[2016-07-08 05:38] LABS: PROTHROMBIN TIME (PATIENT) 44.2 SECONDS (9.6-11.5)
[2016-07-08 06:09] LABS: BLOOD UREA NITROGEN 21 mg/dL (9-23); CALCIUM SERUM 8.4 mg/dL (8.4-10.2); CARBON DIOXIDE 31 mmol/L (22-31); CHLORIDE 99 mmol/L (100-111); CK TOTAL 36 IU/L (36-174); GLOM FILT RATE Estimated ABOVE60 mL/min (>60); GLUCOSE FASTING 132 mg/dL (70-110); POTASSIUM 4.7 mmol/L (3.5-5.1); SODIUM 137 mmol/L (135-145)
[2016-07-09 05:12] LABS: HEMATOCRIT 25.6 % (38.0-50.0); HEMOGLOBIN 7.4 gm/dL (13.0-16.0); MEAN CELL VOLUME 80.1 FL (83-96); MEAN CORPUSCULAR HEMOGLOBIN 23.3 PG (28-34); MEAN PLATELET VOLUME 9.4 FL (6.5-11.5); RED BLOOD COUNT 3.2 X10e (3.90-5.60); RED CELL DISTRIBUTION WIDTH 21.4 % (11.0-15.5)
[2016-07-09 05:17] LABS: INR 1.5
[2016-07-09 05:18] LABS: PROTHROMBIN TIME (PATIENT) 16.4 SECONDS (9.6-11.5)
[2016-07-09 05:57] LABS: BLOOD UREA NITROGEN 28 mg/dL (9-23); CALCIUM SERUM 8.5 mg/dL (8.4-10.2); CARBON DIOXIDE 35 mmol/L (22-31); CHLORIDE 100 mmol/L (100-111); CREATININE SERUM 0.8 mg/dL (0.6-1.4); GLOM FILT RATE Estimated ABOVE60 mL/min (>60); GLUCOSE FASTING 124 mg/dL (70-110); POTASSIUM 5.1 mmol/L (3.5-5.1); SODIUM 140 mmol/L (135-145)
[2016-07-09 16:51] LABS: BODY FLUID SOURCE PLEURAL
[2016-07-09 16:52] LABS: BF TOTAL NUCLEATED CELL COUNT 443 CMM (0-100); BODY FLUID APPEARANCE CLEAR; BODY FLUID RBC <10000 CMM
[2016-07-09 17:20] LABS: PROTEIN, BODY FLUID 1.1 gm/dL
[2016-07-10 06:12] LABS: HEMATOCRIT 28.4 % (38.0-50.0); HEMOGLOBIN 8.3 gm/dL (13.0-16.0); MEAN CELL VOLUME 80.2 FL (83-96); MEAN CORPUSCULAR HEMOGLOBIN 23.4 PG (28-34); MEAN CORPUSCULAR HGB CONC 29.2 g/dL (30-36); MEAN PLATELET VOLUME 9.8 FL (6.5-11.5); RED BLOOD COUNT 3.54 X10e (3.90-5.60); RED CELL DISTRIBUTION WIDTH 21.7 % (11.0-15.5); WHITE BLOOD COUNT 17.1 X10e3 (4.0-10.5)
[2016-07-10 07:15] LABS: BLOOD UREA NITROGEN 29 mg/dL (9-23); BUN/CREATININE RATIO 36.25; CALCIUM SERUM 8.8 mg/dL (8.4-10.2); CARBON DIOXIDE 33 mmol/L (22-31); CHLORIDE 100 mmol/L (100-111); CREATININE SERUM 0.8 mg/dL (0.6-1.4); GLOM FILT RATE Estimated ABOVE60 mL/min (>60); GLUCOSE FASTING 117 mg/dL (70-110); POTASSIUM 4.5 mmol/L (3.5-5.1); SODIUM 141 mmol/L (135-145)
[2016-07-12 05:32] LABS: HEMATOCRIT 27.1 % (38.0-50.0); MEAN CELL VOLUME 80.1 FL (83-96); MEAN CORPUSCULAR HEMOGLOBIN 23.7 PG (28-34); MEAN CORPUSCULAR HGB CONC 29.6 g/dL (30-36); MEAN PLATELET VOLUME 9.6 FL (6.5-11.5); RED BLOOD COUNT 3.38 X10e (3.90-5.60); RED CELL DISTRIBUTION WIDTH 21.6 % (11.0-15.5)
[2016-07-12 05:44] LABS: INR 1.1; PROTHROMBIN TIME (PATIENT) 11.4 SECONDS (9.6-11.5)
[2016-07-12 06:19] LABS: BLOOD UREA NITROGEN 26 mg/dL (9-23); CALCIUM SERUM 8.9 mg/dL (8.4-10.2); CARBON DIOXIDE 32 mmol/L (22-31); CHLORIDE 98 mmol/L (100-111); CREATININE SERUM 0.8 mg/dL (0.6-1.4); GLOM FILT RATE Estimated ABOVE60 mL/min (>60); GLUCOSE FASTING 124 mg/dL (70-110); POTASSIUM 4.9 mmol/L (3.5-5.1); SODIUM 139 mmol/L (135-145)
[2016-07-13 06:07] LABS: BLOOD UREA NITROGEN 28 mg/dL (9-23); CALCIUM SERUM 8.7 mg/dL (8.4-10.2); CARBON DIOXIDE 33 mmol/L (22-31); CHLORIDE 98 mmol/L (100-111); CREATININE SERUM 0.7 mg/dL (0.6-1.4); GLOM FILT RATE Estimated ABOVE60 mL/min (>60); GLUCOSE FASTING 100 mg/dL (70-110); POTASSIUM 4.6 mmol/L (3.5-5.1); SODIUM 137 mmol/L (135-145)
[2016-07-13 08:45] LABS: HEMOGLOBIN 8.9 gm/dL (13.0-16.0); MEAN CELL VOLUME 79.5 FL (83-96); MEAN CORPUSCULAR HEMOGLOBIN 23.5 PG (28-34); MEAN CORPUSCULAR HGB CONC 29.6 g/dL (30-36); MEAN PLATELET VOLUME 9.4 FL (6.5-11.5); RED BLOOD COUNT 3.77 X10e (3.90-5.60); RED CELL DISTRIBUTION WIDTH 21.2 % (11.0-15.5); WHITE BLOOD COUNT 14.6 X10e3 (4.0-10.5)
[2016-07-14 06:05] LABS: HEMATOCRIT 30.3 % (38.0-50.0); HEMOGLOBIN 8.7 gm/dL (13.0-16.0); MEAN CELL VOLUME 80.5 FL (83-96); MEAN CORPUSCULAR HEMOGLOBIN 23.2 PG (28-34); MEAN CORPUSCULAR HGB CONC 28.8 g/dL (30-36); MEAN PLATELET VOLUME 9.5 FL (6.5-11.5); RED BLOOD COUNT 3.76 X10e (3.90-5.60); RED CELL DISTRIBUTION WIDTH 21.3 % (11.0-15.5); WHITE BLOOD COUNT 19.2 X10e3 (4.0-10.5)
[2016-07-14 06:45] LABS: ALBUMIN SERUM 3.3 g/dL (3.5-5.0); ALKALINE PHOSPHATASE 82 U/L (32-92); ALT (SGPT) 20 U/L (10-40); AST (SGOT) 22 U/L (10-42); BILIRUBIN,TOTAL 1.4 mg/dL (0.2-2.0); BLOOD UREA NITROGEN 28 mg/dL (9-23); CALCIUM SERUM 8.4 mg/dL (8.4-10.2); CARBON DIOXIDE 37 mmol/L (22-31); CHLORIDE 94 mmol/L (100-111); CREATININE SERUM 0.8 mg/dL (0.6-1.4); GLOM FILT RATE Estimated ABOVE60 mL/min (>60); GLUCOSE FASTING 101 mg/dL (70-110); IRON SERUM 33 ug/dL (45-182); POTASSIUM 4.4 mmol/L (3.5-5.1); PROTEIN TOTAL SERUM 6.3 g/dL (6.0-8.3); SODIUM 136 mmol/L (135-145); TOTAL IRON BINDING CAPACITY 416 ug/dL (252-460); TRANSFERRIN 297 mg/dL (180-329); TRANSFERRIN SATURATION 8 % (20-50)
[2016-07-14 06:59] LABS: FERRITIN 48 ng/mL (24-336)
[2016-07-15 05:39] LABS: HEMATOCRIT 27.6 % (38.0-50.0); HEMOGLOBIN 8.2 gm/dL (13.0-16.0); MEAN CELL VOLUME 79.9 FL (83-96); MEAN CORPUSCULAR HEMOGLOBIN 23.8 PG (28-34); MEAN CORPUSCULAR HGB CONC 29.8 g/dL (30-36); MEAN PLATELET VOLUME 9.5 FL (6.5-11.5); RED BLOOD COUNT 3.45 X10e (3.90-5.60); RED CELL DISTRIBUTION WIDTH 21.6 % (11.0-15.5); WHITE BLOOD COUNT 14.4 X10e3 (4.0-10.5)
[2016-07-15 06:48] LABS: ALBUMIN SERUM 3.1 g/dL (3.5-5.0); ALKALINE PHOSPHATASE 65 U/L (32-92); ALT (SGPT) 20 U/L (10-40); AST (SGOT) 23 U/L (10-42); BILIRUBIN,TOTAL 1.5 mg/dL (0.2-2.0); BLOOD UREA NITROGEN 27 mg/dL (9-23); BUN/CREATININE RATIO 33.75; CALCIUM SERUM 8.4 mg/dL (8.4-10.2); CARBON DIOXIDE 34 mmol/L (22-31); CHLORIDE 99 mmol/L (100-111); CREATININE SERUM 0.8 mg/dL (0.6-1.4); GLOM FILT RATE Estimated ABOVE60 mL/min (>60); GLUCOSE FASTING 110 mg/dL (70-110); POTASSIUM 4.7 mmol/L (3.5-5.1); PROTEIN TOTAL SERUM 5.9 g/dL (6.0-8.3); SODIUM 138 mmol/L (135-145)
== END 2016-07-15 10:35 | DRG 811 ==
LOC: CED 18:15 → CEDOF 23:00 → C3A PCU 07-08 01:00
PROVIDERS: Emergency Medicine; Internal Medicine; Internal Medicine Hematology
PROC: B24BYZZ Ultrasonography of Heart with Aorta using Other Contrast (ICD-10-PCS; 2016-07-08)
PROC: 0W993ZX Drainage of Right Pleural Cavity, Percutaneous Approach, Diagnostic (ICD-10-PCS; 2016-07-09)
PROC: 0BBJ3ZX Excision of Left Lower Lung Lobe, Percutaneous Approach, Diagnostic (ICD-10-PCS; principal; 2016-07-12)
DX: D62 Acute posthemorrhagic anemia (principal); J96.01 Acute respiratory failure with hypoxia; J18.9 Pneumonia, unspecified organism; I50.23 Acute on chronic systolic (congestive) heart failure; J90 Pleural effusion, not elsewhere classified; I27.2 Other secondary pulmonary hypertension; C34.32 Malignant neoplasm of lower lobe, left bronchus or lung; I11.0 Hypertensive heart disease with heart failure; J44.1 Chronic obstructive pulmonary disease with (acute) exacerbation; R04.2 Hemoptysis; T88.7XXA Unspecified adverse effect of drug or medicament, initial encounter; I48.2 Chronic atrial fibrillation; Z95.0 Presence of cardiac pacemaker; I25.10 Atherosclerotic heart disease of native coronary artery without angina pectoris; Z79.01 Long term (current) use of anticoagulants; G47.33 Obstructive sleep apnea (adult) (pediatric); I71.4 Abdominal aortic aneurysm, without rupture; M10.9 Gout, unspecified; N40.0 Benign prostatic hyperplasia without lower urinary tract symptoms; Z85.51 Personal history of malignant neoplasm of bladder; Z79.82 Long term (current) use of aspirin; T45.515A Adverse effect of anticoagulants, initial encounter
CPT/HCPCS: 36415; 71010; 71250; 77012; 80048; 80053; 80076; 81003; 82308; 82550; 82553; 82607; 82728; 82945; 83540; 83550; 83605; 83615; 83880; 83986; 84157; 84484; 85025; 85027; 85610; 85730; 86850; 86900; 86901; 87045; 87070; 87205; 87427; 87899; 88108; 88305; 88341; 88342; 89051; 93005; 93306; 93971; 94640; 94660; 94664; 94760; 94761; 97116; 97161; 97167; 97530; 97535; 99285; G8978-GP; G8979-GP; G8987-GO; G8988-GO; J0696; J1940; J2250; J2405; J2916; J2920; J2930; J3010; J3430

== ENCOUNTER 2016-07-19 23:03 | Inpatient (IN) | payer MEDICARE ==
--- NOTE | ~2016-07-19 | CR72 ---
[facility] A Service of [facility] & [facility] RADIOLOGY TEXT RESULTS PATIENT: KELSIE LESLIE LOCATION: [facility] 304-01 : 37 UNIT #: [id number] AGE: [address]: Raji Lopez MD SEX: M ORDER DR: [id number] [facility] [address] [place], [place] [address] [id number] E MR#: [id number] Acc #: [id number] NAME: KELSIE LESLIE : 1935 SEX: M STUDY DATE/TIME: 07/19/2016 22:32 UNIT: [facility] ROOM: STUDY DESCRIPTION: CR Chest Single View Portable Attending Physician: Er Doctor Generic Ordering Physician: Roberto Meraz M.D. Primary Care Physician: Korey Bravo M.D. MEDICAL IMAGING REPORT This report is preliminary unless electronic signature is present EXAM Frontal chest 07/19/2016 INDICATION 81-year-old male with shortness of air for 3 days. Lung and bladder cancer, COPD, emphysema. TECHNIQUE Frontal chest compared with 07/12/2016 FINDINGS Left-sided dual lead pacemaker present. Cardiac silhouette is enlarged and stable. Vascularity within normal limits. There is old healed granulomatous disease. Mild fibrosis and scarring in the lung bases. No effusion, pneumothorax or dense consolidation. IMPRESSION 1. Cardiomegaly and chronic-appearing lung changes including old healed granulomatous disease but no definite superimposed active disease. Left-sided pacemaker again noted. Dictated by... Ancelmo Lozano M.D. THIS IS AN ELECTRONICALLY VERIFIED REPORT Ancelmo Lozano M.D. at 07/20/2016 10:21 AM Dada TD: 07/20/2016 04:59 JOB #: [id number] MEDICAL IMAGING REPORT COPY
--- NOTE | ~2016-07-19 | EKG ---
PATIENT: KELSIE LESLIE UNIT #: [id number] Ventricular Rate: 65 BPM Atrial Rate: 227 BPM QRS Duration: 94 ms Q-T Interval: 384 ms QTC Calculation(Bezet): 399 ms Calculated R [place]: 22 degrees Calculated T [place]: 148 degrees Diagnosis Line: Atrial flutter with frequent ventricular-paced Diagnosis Line: complexes Diagnosis Line: ST and T wave abnormality, consider lateral ischemia Diagnosis Line: Abnormal ECG Diagnosis Line: When compared with ECG of 07-JUL-2016 21:43, Diagnosis Line: Vent. rate has increased BY 5 BPM Diagnosis Line: Intrinsic conduction noted and baseline rhythm is Diagnosis Line: atrial flutter Diagnosis Line: Confirmed by HAILEY ANDRADE MD ([id number]) on Diagnosis Line: 07/20/2016 12:00:04 PM INTERPRETING MD: RAPHAEL
--- NOTE | ~2016-07-19 | CO ---
Unit #: [id number] #: [id number] Patient: KELSIE LESLIE [id number] [address] [place], [place] [address] [id number] MR#: [id number] NAME: KELSIE LESLIE ROOM: 304 Age: 81 Sex: M Admission Date: 07/20/2016 : 1935 Attending Physician: Raji Lopez M.D. Primary Care Physician: Korey Bravo M.D. CONSULTATION REPORT CHIEF COMPLAINT Adenocarcinoma, left lower lobe mass 3.4 cm, left upper lobe mass 0.7 cm, multiple medical problems. HISTORY OF PRESENT ILLNESS This is a 81-year-old male who started smoking at the age of 11. He had been smoking one pack per day for almost 70 years. He came to hospital with shortness of breath, dyspnea on exertion, found to have exacerbation of COPD, hypoxia, elevated CO2. He is on BiPAP machine, receiving inhalers. Patient had a CT of the chest on 07/07/2016. There is a 3.4 x 2.4 cm solid mass in the left lower lobe. There is a 0.7 cm mass in the posterior left upper lobe. Biopsy of the larger mass is positive for adenocarcinoma. He has atrial fibrillation. He was on Coumadin, now started on Eliquis and tolerating. He also had some right lower extremity bleeding that has resolved. Recently he was hospitalized in this hospital with shortness of breath, same complaint, went to rehab and finally home. He is back with the same/similar complaint including short of breath and CO2 retention. REVIEW OF SYSTEMS CONSTITUTIONAL: No fever, no chills, no sweats, no weight loss. EYES: No visual symptoms. EARS, NOSE AND THROAT: There is no runny nose or sore throat or difficulty hearing. CARDIOVASCULAR: No chest pain. No shortness of breath. No palpitations. No orthopnea. No PND. RESPIRATORY: As mentioned above short of breath, dyspnea on exertion. GASTROINTESTINAL: No nausea, vomiting, diarrhea, constipation, hematochezia or melena. GENITOURINARY: No urinary frequency, hesitancy or urgency. No blood in the urine. MUSCULOSKELETAL: No muscle or joint pain. NEUROLOGIC: No headache. No numbness or tingling. No weakness. No seizure. PSYCHIATRIC: No anxiety, depression or mood disturbance. ENDOCRINE: No excessive urination or thirst. DERMATOLOGIC: No rash or change in the skin. Unit #: [id number] #: [id number] Patient: KELSIE LESLIE ALLERGIC/IMMUNOLOGIC: No symptoms. HEMATOLOGIC/LYMPHATIC: Denies any symptoms. PAST MEDICAL HISTORY 1. COPD. 2. Atrial fibrillation, on Eliquis. 3. Congestive heart failure. 4. Pacemaker. ALLERGIES None. SOCIAL HISTORY As mentioned above he started smoking at the age of 11, had been smoking one pack per day for 70 years, denies alcohol abuse. 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 PAST SURGICAL HISTORY 1. He had a colectomy. 2. He had a resection (1) bladder cancer. No sign of disease. FAMILY HISTORY Mother had a cancer. CURRENT MEDICATION His current medication includes Lipitor, Symbicort, Combivent, Lasix, aspirin, Neurontin, Flomax, Paxil, Lopressor, Proscar, Eliquis. PHYSICAL EXAMINATION GENERAL: Patient is comfortable. ECOG is 0. The patient is pleasant. VITAL SIGNS: Afebrile, pulse 70s, respiratory rate 18, on 4 L O2 sat 97%, blood pressure 115/89. HEENT: Moist mucosa. Pupils equally reactive to light. Extraocular muscles intact. Sclerae anicteric. No obvious bleeding from nasal mucosa or oral mucosa. Scalp normal. Hearing normal. NECK: No JVD. No lymphadenopathy. LYMPHATIC/HEMATOLOGIC: There is no palpable adenopathy in the neck, axilla or inguinal area. CARDIOVASCULAR: S1, S2. Regular rate and rhythm. No S3 or S4. RESPIRATORY: Bilateral wheezes. Poor air entry. ABDOMEN/GASTROINTESTINAL: Abdomen is soft, nontender, nondistended. No hepatosplenomegaly. EXTREMITIES: There is no clubbing, no cyanosis, no edema. No varicose veins. NEUROLOGICAL: Patient is alert, awake and oriented x3. Cranial nerves II-XII are intact. Sensory grossly intact. Motor is 4/5 in all four extremities. Gait is normal. Station is normal. Language is normal. Memory is normal. DTRs +2 in all four extremities. MUSCULOSKELETAL: No joint swelling. No bony tenderness. No muscle tenderness. SKIN: No petechiae, no rash, no ecchymosis. PSYCHIATRIC: No anxiety. No delusions or hallucinations. There is no agitation. Eye contact is normal. Affect is appropriate. There is no flight of ideas. DIAGNOSTIC STUDIES IMAGING: CT scan as mentioned above. Unit #: [id number] #: [id number] Patient: KELSIE LESLIE LABORATORY: Creatinine 0.5. Liver function tests are normal. WBC 11.0, hemoglobin 8.9, MCV 82, platelets 116. ASSESSMENT AND PLAN This is a 81-year-old male who has the following active issues: 1. Non-small cell lung cancer. It is adenocarcinoma. There are two lesions in the left lung. One is in left upper lobe and one is in left lower lobe. The left lower lobe lesion is about 3.4 cm. As an outpatient will do PET scan. He is a good candidate for SBRT. He cannot tolerate surgery. He cannot tolerate any chemotherapy. I had an extensive discussion with the patient and his [id number]. His prognosis is guarded. 2. Respiration: He has recurrent admissions for COPD exacerbation and CO2 retention. He is on a BiPAP machine. 3. Cardiovascular: He has congestive heart failure which is stable. 4. Atrial fibrillation: He is on Eliquis 5 mg p.o. b.i.d., tolerating. 5. Thrombocytopenia: His platelet count is 116. We will observe. 6. Anemia: Will check iron studies. Dictated by... Yolande Pierson/omar TD: 07/20/2016 18:54 JOB #: [id number] CONSULTATION REPORT X Karla Henley MD CONSULTATION REPORT
--- NOTE | ~2016-07-19 | BMI ---
[facility] Nutrition Therapy DATE: 07/21/16 Patient: KELSIE Malou MARIAMA Physician: ALVA Address: [address] [facility] Room/Bed: [address] [place] [address], Zip: [place] [address] Admit Date: 07/20/16 Date of : 37 Height: 5 10 Weight: 295 134 HIGH BMI NOTE: ANTHROPOMETRICS: HT: 70" WT: 134 KG BMI: 42.4 INTERVENTION: 1. MECHANICAL SOFT DIET RECOMMENDATIONS: 1. ADD HEART HEALTHY RESTRICTION TO DIET IN ORDER TO PROMOTE GRADUAL WEIGHT LOSS. Respectfully, LEAH WIGGINS RD, LD Food and Nutritional Services [facility] cc: client file
--- NOTE | ~2016-07-19 | CR72 ---
[facility] A Service of [facility] RADIOLOGY TEXT RESULTS PATIENT: KELSIE LESLIE LOCATION: [facility] 329-01 : 37 UNIT #: [id number] AGE: [address]: Raji Lopez MD SEX: M ORDER DR: [id number] [facility] [address] [facility]. [place], [place] [address] [id number] MR#: [id number] Acc #: [id number] NAME: KELSIE LESLIE : 1935 SEX: M STUDY DATE/TIME: 07/22/2016 20:50 UNIT: [facility] ROOM: [facility] STUDY DESCRIPTION: CR Chest Single View Portable Attending Physician: Raji Lopez M.D. Ordering Physician: Debbie Valverde M.D. Primary Care Physician: Korey Bravo M.D. MEDICAL IMAGING REPORT This report is preliminary unless electronic signature is present EXAM Portable chest 07/22/2016 COMPARISON 07/19/2016 HISTORY Short of air for 6 days. FINDINGS There is no consolidation or effusion or pneumothorax. There is a pacemaker device in place. Known left lung nodule is redemonstrated. IMPRESSION No pneumothorax, new infiltrate, effusion or other new abnormality. Dictated by... Eh Cespedes M.D. THIS IS AN ELECTRONICALLY VERIFIED REPORT Eh Cespedes M.D. at 07/26/2016 4:33 PM TEV/psc TD: 07/23/2016 02:00 JOB #: [id number] MEDICAL IMAGING REPORT COPY
--- NOTE | ~2016-07-19 | DS ---
Unit #: [id number] #: [id number] Patient: KELSIE LESLIE [id number] [address] [place], [place] [address] [id number] MR#: [id number] NAME: KELSIE LESLIE. ROOM: 329 Age: 81 Sex: M Admission Date: 07/20/2016 : 1935 Discharge Date: 07/26/2016 Attending Physician: Raji Lopez M.D. Primary Care Physician: Korey Bravo M.D. DISCHARGE SUMMARY CONSULTANTS 1. Dr. Abad. 2. Dr. Jacques. 3. Dr. Henley. ADMITTING DIAGNOSIS Acute hypoxic respiratory failure. FURTHER DIAGNOSES 1. Lung cancer/adenocarcinoma. 2. Permanent atrial fibrillation, rate controlled. 3. Morbid obesity. 4. History of bladder cancer, status post surgery. 5. Sleep apnea. 6. Abdominal aortic aneurysm. 7. Gout. 8. History of spinal stenosis. 9. Benign prostatic hypertrophy. 10. History of duodenitis. 11. Chronic systolic heart failure with EF (1) to 40%. HISTORY OF PRESENTING ILLNESS The patient is a 81-year-old man who was just discharged from this facility on July 14, who presented on the because of shortness of breath. He was transferred to rehab, and in rehab he complained of progressive worsening of breathing. HOSPITAL COURSE Initially, he was on the floor. He was started on antimicrobials. He had a thoracentesis done. During the hospital course, he went downhill and he needed to be on BiPAP and was moved to the ICU. Pulmonary Oncology was following the patient. He also developed atrial fibrillation with RVR and was started on sylwia blocking agents and his heart rate stabilized. Cardiology followed for the atrial fibrillation with RVR. He used to be on anticoagulation with Coumadin, but now he is on Eliquis. He needs to get a PET scan and further workup for cancer. Dr. Henley is planning to get those things organized as an outpatient. Patient is clinically stable, and he will be discharged to rehab today. PHYSICAL EXAMINATION ON DISCHARGE Unit #: [id number] #: [id number] Patient: KELSIE LESLIE VITAL SIGNS: Temperature 97.8, pulse rate 57, respiratory rate 19, and blood pressure 141/72. GENERAL: Patient is alert and oriented x3, lying in the bed in no acute distress. HEENT: Normocephalic and atraumatic. No icterus. Pupils are equal, round, and reactive to light and accommodation. Extraocular muscles intact. NECK: Supple. No JVD. HEART: S1 and S2, regular rate and rhythm. CHEST: Bilateral equal air entry and bilateral rhonchi. ABDOMEN: Soft and nontender. EXTREMITIES: No edema. Normal pulses. DISCHARGE MEDICATIONS 1. Levaquin 500 mg p.o. daily for 5 more days. 2. ProAir q.i.d. p.r.n. shortness of breath. 3. Symbicort 160/4.5 mcg 2 puffs twice daily. 4. Prednisone tapering dose. 5. Flomax 0.8 mg in the morning. 6. Eliquis 5 mg twice daily. 7. Gabapentin 600 mg twice daily. 8. Paxil 40 mg in the morning. 9. Incruse Ellipta 62.5 mcg inhalation daily. 10. Nicotine topical patch 14 mg daily. 11. Klonopin 0.5 mg p.o. 3 times daily. 12. Metoprolol 25 mg p.o. twice daily. 13. Breo Ellipta 100/25 mcg inhalation daily. 14. Lasix 20 mg daily. 15. Simvastatin 20 mg at bedtime. 16. Finasteride 5 mg in the morning. 17. Aspirin 81 mg daily. 18. Protonix 40 mg in the morning. 19. KCl 20 mEq p.o. twice daily. 20. Folic acid 1 mg p.o. daily. 21. Levofloxacin 750 mg p.o. daily for 5 more days. DISPOSITION Patient will be discharged to rehab. FOLLOWUP He is instructed to follow with Dr. Henley as an outpatient. Total time spent in the discharge 35 minutes. Dictated by... Raji Lopez M.D. PS/arlen TD: 07/26/2016 15:27 JOB #: [id number] Unit #: [id number] #: [id number] Patient: KELSIE LESLIE DISCHARGE SUMMARY X X DISCHARGE SUMMARY
--- NOTE | ~2016-07-19 | EKG ---
PATIENT: KELSIE LESLIE UNIT #: [id number] Ventricular Rate: 106 BPM Atrial Rate: 133 BPM QRS Duration: 80 ms Q-T Interval: 272 ms QTC Calculation(Bezet): 361 ms Calculated R [place]: 64 degrees Calculated T [place]: -157 degrees Diagnosis Line: Atrial fibrillation with rapid ventricular Diagnosis Line: response Diagnosis Line: ST and T wave abnormality, consider inferior Diagnosis Line: ischemia or digitalis effect Diagnosis Line: ST and T wave abnormality, consider anterolateral Diagnosis Line: ischemia or digitalis effect Diagnosis Line: Abnormal ECG Diagnosis Line: When compared with ECG of 19-JUL-2016 23:10, Diagnosis Line: Atrial fibrillation has replaced Electronic Diagnosis Line: ventricular pacemaker Diagnosis Line: Vent. rate has increased BY 41 BPM Diagnosis Line: Confirmed by KRIS REINA MD ([id number]) on 07/24/2016 Diagnosis Line: 5:52:26 PM INTERPRETING MD: LATOSHA BREWER
--- NOTE | ~2016-07-19 | CO ---
Unit #: [id number] #: [id number] Patient: KELSIE ZAPATA [id number] [address] [place], [place] [address] [id number] MR#: [id number] NAME: KELSIE ZAPATA ROOM: 304 Age: 81 Sex: M Admission Date: 07/20/2016 : 1935 Attending Physician: Raji Lopez M.D. Primary Care Physician: Koery Bravo M.D. CONSULTATION REPORT HISTORY Mr. Zapata is a 81-year-old male who was seen by Dr. Jacques last admission. He has a history of COPD, obstructive sleep apnea and newly diagnosed adenocarcinoma of the lung. He was admitted last visit for coagulopathy secondary to Coumadin and a large right lower extremity hematoma. During that hospitalization, he was noted on CT scan to have a left lower lobe mass, for which he eventually underwent CT-directed fine needle aspiration revealing adenocarcinoma of the lung. He was discharged to rehab in order to become stronger so he could undergo radiation therapy to the lesion. He was not felt to be a candidate for chemotherapy due to his co-morbidities, from what I understand. He was also to have an outpatient PET scan. I got a call from his daughter yesterday who said he was less responsive and breathing heavily, and she was taking him to the emergency room. In the emergency room he was noted to have an O2 saturation of 94% on 4 liters. His pulse was 74, and his temperature was 98 degrees. He was given breathing treatments and apparently became more responsive. No arterial blood gas has been done. He did have lab work done, which revealed a CO2 of 41 on his basic metabolic panel, up from 34 during his last hospitalization. His white count was 11,000, and his hematocrit was 30.5. We were asked to see the patient. He has been scheduled for thoracentesis by [facility]. On review of his chest x-ray yesterday I see cardiomegaly with chronic appearing changes, no active disease, no significant pleural effusion. Left-sided pacemaker is noted. PAST MEDICAL HISTORY 1. COPD. 2. Obstructive sleep apnea. 3. Chronic systolic heart failure. 4. A fib. 5. Hyperlipidemia. 6. Abdominal aortic aneurysm. 7. Spinal stenosis with chronic pain. 8. BPH. 9. Adenocarcinoma of the lung. 10. History of bladder cancer. SURGICAL HISTORY Transurethral resection of bladder tumor. FAMILY HISTORY Coronary artery disease. Unit #: [id number] #: [id number] Patient: KELSIE ZAPATA. HOME MEDICATIONS Klonopin, finasteride, Lasix, Metoprolol, Protonix, Paxil, potassium chloride, simvastatin, Flomax, Eliquis, ProAir, Symbicort. SOCIAL HISTORY Currently has been in rehab. Had been in assisted living. Has a motorized scooter. A 60 pack-year history of smoking. No recent smoking. No alcohol or illicit drugs. REVIEW OF SYSTEMS A 10-point system is negative other than noted above. PHYSICAL EXAMINATION VITAL SIGNS: Blood pressure is 153/81, pulse 94, respiratory rate 18, afebrile. HEENT: Normocephalic, atraumatic. Pupils are equal, round and reactive. Sclerae are nonicteric. Nasal passages are patent. Posterior pharynx crowded. Dentures in place. Mallampati 4. NECK: Neck is supple. Trachea midline. LUNGS: Scattered rhonchi. CARDIAC: Heart sounds are distant. Irregularly irregular rhythm. Could not appreciate murmur, rub or gallop. ABDOMEN: Nontender. Protuberant. Bowel sounds are present. No organomegaly appreciated. EXTREMITIES: Continued small hematoma of right lateral lower extremity and 1+ edema; left leg no edema. IMPRESSION 1. Acute and chronic respiratory failure. 2. COPD. 3. Altered mental status, improved, possibly related to CO2 narcosis from residential not applying CPAP during his stay there in conjunction with underlying COPD and possibly obesity hypoventilation syndrome. 4. Obstructive sleep apnea. 5. Chronic A fib. 6. Nonobstructive coronary artery disease. 7. Immobility syndrome. 8. Chronic back pain with spinal stenosis. 9. Newly diagnosed adenocarcinoma of the lung. PLAN Inhaled bronchodilators, IV steroids. Will rule out aspiration pneumonia with speech therapy and video swallow. Make sure the patient wears his CPAP when sleeping. Will check arterial blood gases to see if hypercarbia has developed since recent hospitalization. Will make further recommendations pending this. Dictated by... Padilla Matthews M.D. SAI/moira Unit #: [id number] #: [id number] Patient: KELSIE ZAPATA TD: 07/21/2016 09:05 JOB #: [id number] CONSULTATION REPORT X Padilla Matthews MD CONSULTATION REPORT
--- NOTE | ~2016-07-19 | CO ---
Unit #: [id number] #: [id number] Patient: KELSIE LESLIE [id number] [facility] [address] [place], [place] [address] [id number] I MR#: [id number] NAME: KELSIE LESLIE ROOM: 329 Age: 81 Sex: M Admission Date: 07/20/2016 : 1935 Attending Physician: Raji Lopez M.D. Primary Care Physician: Korey Bravo M.D. CONSULTATION REPORT REASON FOR CONSULTATION Atrial fibrillation. HISTORY OF PRESENT ILLNESS This is a 81-year-old white male, previously known to Dr. Yan and [facility]. The patient has a history of nonobstructive coronary artery disease, although records are unavailable. A 2D echocardiogram was completed in 08/2014, which revealed a left ventricular ejection fraction of 55% with oadp-wg-ujojuliw mitral regurgitation and tricuspid regurgitation. Right ventricular systolic pressure was elevated at 50 mmHg. The patient is known to have permanent atrial fibrillation and permanent pacemaker. He is on chronic anticoagulation with Eliquis. He has a history of COPD, peripheral artery disease, hyperlipidemia, and frequent falls. He was recently admitted to [facility] last month and was diagnosed with non-small cell lung CA. He has also had a bladder tumor in the past requiring resection. He presented to the emergency department with complaints of shortness of breath, cough, and wheezing. His symptoms have been present for the last 3 days. He was recently diagnosed with right leg hematoma after falling in the shower. However, the hematoma stabilized. He was on Coumadin at that time, his INR was uncontrolled and he was switched to Eliquis. During hospitalization on 06/2016, he underwent thoracentesis with removal of approximately 1400 mL. He was readmitted on 07/23/2016 for acute respiratory failure and non-small cell lung cancer. He subsequently was transferred to the intensive care unit for shortness of breath and hypoxia. Cardiology was consulted for atrial fibrillation. According to telemetry, the patient's heart rate is intermittently in the 120s to 130s. However, currently on exam, it is controlled. He denies any chest pain. He does complain of worsening shortness of breath and wheezing. There are no reports of fever. He did have a severe episode of chills and shaking last night according to his granddaughter. Information has been obtained from him and his family. He is somewhat ill appearing and he is not the best historian. PAST MEDICAL HISTORY 1. Nonobstructive coronary artery disease per Dr. Yan. Details unavailable. 2. 2D echocardiogram on 09/09/2014 was a technically difficult study. Left ventricular ejection fraction 55%. Severe septal hypokinesis. Left atrium moderately dilated. Right atrium mildly dilated. Nnsq-yn-uxoyfbhd mitral regurgitation and tricuspid regurgitation. Right ventricular systolic pressure 52 mmHg. Unit #: [id number] #: [id number] Patient: KELSIE LESLIE 3. Repeat 2D echocardiogram on 07/08/2016 was a technically difficult study. Left ventricular ejection fraction decreased to 35% to 40%. Mild aortic stenosis. Right ventricular systolic pressure 48 mmHg. Small pericardial effusion versus fat pad. 4. Permanent atrial fibrillation, on chronic anticoagulation with Eliquis. 5. History of permanent pacemaker. 6. Peripheral artery disease with abdominal aortic aneurysm per imaging on 09/2012. 7. COPD. 8. Hyperlipidemia. 9. Frequent falls. 10. Recent right leg hematoma. 11. Recent admission to [facility] on 06/2016. Status post thoracentesis with 1400 mL removed. Status post lung biopsy with a new diagnosis of non-small cell lung cancer. 12. History of bladder tumor, status post resection. 13. COPD. 14. Diverticulosis. 15. Sleep apnea on CPAP. 16. Anxiety. 17. Reformed tobacco abuse. PAST SURGICAL HISTORY 1. Permanent pacemaker in 2007. 2. Cholecystectomy in 1973. 3. Cervical fusion in 1992. 4. Hernia repair. 5. Colon resection in 1985. 6. Right wrist repair. 7. Right hip replacement in 2002. 8. Right shoulder surgery in 2003. 9. Bilateral cataracts. 10. Cardiac ablation in 2007 and DC cardioversion in 2007, now with recurrence of atrial fibrillation. HOME MEDICATIONS Clonazepam 0.5 mg p.o. t.i.d., finasteride 5 mg p.o. daily, Lasix 20 mg p.o. daily, metoprolol tartrate 25 mg p.o. b.i.d., pantoprazole 40 mg p.o. daily, paroxetine 40 mg p.o. daily, potassium chloride 20 mEq p.o. b.i.d., simvastatin 20 mg p.o. at bedtime, Flomax 0.8 mg daily, Breo 1 inhalation daily, ProAir q.i.d., Gabapentin 600 mg p.o. b.i.d., aspirin 81 mg p.o. daily, Eliquis 5 mg p.o. b.i.d. ALLERGIES Claritin. SOCIAL HISTORY The patient is a reformed smoker. There are no reports of alcohol or illicit drug use. FAMILY HISTORY Noncontributory. REVIEW OF SYSTEMS 12-point review of systems negative except for details noted above in HPI. PHYSICAL EXAMINATION VITAL SIGNS: Temperature 97.6, pulse 81, blood pressure 114/87. Unit #: [id number] #: [id number] Patient: KELSIE LESLIE CONSTITUTIONAL: This is a 81-year-old white male, in no acute distress. SKIN: Warm and dry. NECK: Supple. No jugular vein distention. No hepatojugular reflux. Normal carotid upstrokes. No carotid bruits auscultated. HEART: S1 and S2. Irregularly irregular rate and rhythm. No murmurs, rubs, or gallops. LUNGS: Bilateral breath sounds have scattered wheezes and rhonchi throughout. Respirations are slightly tachypneic and labored. ABDOMEN: Soft, nontender, and nondistended. Positive bowel sounds auscultated x4 quadrants. No ascites noted. EXTREMITIES: Bilateral lower extremities have 1+ pitting edema. DP and PT pulses are 2+. Capillary refill less than 3 seconds. DIAGNOSTIC STUDIES LABORATORY RESULTS: White blood cell count 37.2, hemoglobin 9.3, hematocrit 31.7, platelets 127, sodium 139, potassium 4.3, chloride 92, CO2 38, BUN 37, creatinine 1.2, glucose 176. Troponin 0.03 and 0.07. Urinalysis positive for 2+ leuks, 1+ protein, 3+ blood, negative for bacteria. IMAGING STUDIES: Chest x-ray reveals no pneumothorax. No new infiltrate, effusion, or new abnormality. CARDIOVASCULAR STUDIES: EKG reveals atrial fibrillation with rapid ventricular response. T-wave inversion in the inferior leads and V4 through V6. IMPRESSION 1. Acute hypoxic respiratory failure. 2. Non-small cell lung cancer. 3. History of bladder tumor, status post resection. 4. Permanent atrial fibrillation with rapid ventricular response, now controlled ventricular response. 5. Chronic anticoagulation with Eliquis. 6. Recent right leg hematoma, stable. 7. Mild volume overload. 8. Left ventricular ejection fraction 35% to 40% in 06/2013. 9. Mild aortic stenosis and moderate pulmonary hypertension. 10. Dysphagia, rule out aspiration pneumonia. 11. Leukocytosis. 12. Anemia. 13. Mildly low platelets. 14. History of sick sinus syndrome, status post permanent pacemaker. 15. Nonobstructive coronary artery disease with details unavailable. 16. Chronic obstructive pulmonary disease. 17. Hyperlipidemia. 18. Reformed tobacco abuse. PLAN 1. The patient presented to the hospital with complaints of shortness of breath. He was admitted and transferred to the intensive care unit for respiratory failure. 2. Cardiology was consulted due to atrial fibrillation. The patient's heart rate was rapid, but is now controlled on IV Lopressor. 3. He is having some difficulty swallowing and Speech Therapy is following. 4. We will continue IV beta pam for now and switch to oral as tolerated. Unit #: [id number] #: [id number] Patient: KELSIE LESLIE 5. The patient is on aspirin, statin, Lasix, and Eliquis, but it is unclear if he is able to swallow these. 6. Hematology is following for lung cancer. 7. The patient is now DNR. 8. A small dose of diuretic will be given due to respiratory failure and some mild volume overload. 9. We will need to follow labs and volume status carefully. 10. The patient's family is requesting pacemaker interrogation due to no recent checks. We will have device interrogated on Tuesday. Dictated by... Nadia Jansen APRN for Yolande Gregory/tatiana TD: 07/26/2016 03:55 JOB #: [id number] CONSULTATION REPORT X X CONSULTATION REPORT
--- NOTE | ~2016-07-19 | CR72 ---
[facility] A Service of [facility] & [facility] RADIOLOGY TEXT RESULTS PATIENT: KELSIE LESLIE LOCATION: [facility] 329-01 : 37 UNIT #: [id number] AGE: [address]: Raji Lopez MD SEX: M ORDER DR: [id number] [facility] [address] [place], [place] [address] [id number] I MR#: [id number] Acc #: [id number] NAME: KELSIE LESLIE : 1935 SEX: M STUDY DATE/TIME: 07/25/2016 03:54 UNIT: [facility] ROOM: [facility] STUDY DESCRIPTION: CR Chest Single View Portable Attending Physician: Raji Lopez M.D. Ordering Physician: Raji Lopez M.D. Primary Care Physician: Korey Bravo M.D. MEDICAL IMAGING REPORT This report is preliminary unless electronic signature is present EXAM Portable chest, 07/25 at 03:54 INDICATION Respiratory failure for 5 days. History of lung cancer. FINDINGS AP portable chest is compared with 07/22/2016. Cardiomegaly and mediastinal widening are stable. The mass at the left base is stable. Lungs otherwise are clear and there is no pneumothorax. Dictated by... Chance Francisco Jr., M.D. THIS IS AN ELECTRONICALLY VERIFIED REPORT Chance Francisco Jr., M.D. at 07/25/2016 9:33 PM KALI/toya TD: 07/25/2016 16:59 JOB #: [id number] MEDICAL IMAGING REPORT COPY
--- NOTE | ~2016-07-19 | HP ---
Unit #: [id number] #: [id number] Patient: KELSIE LESLIE [id number] [address] [address] [id number] I MR#: [id number] NAME: KELSIE LESLIE ROOM: 16696 Age: 81 Sex: M Admission Date: 07/20/2016 : 1935 Attending Physician: Dave Kelsey M.D. Primary Care Physician: Korey Bravo M.D. HISTORY AND PHYSICAL CHIEF COMPLAINT Shortness of breath. HISTORY OF PRESENT ILLNESS The patient is a 81-year-old male who was just discharged from this facility on July 14 and re-presents on the with a complaint of shortness of breath. The patient states he has been progressively short of air since being discharged to rehab. He states it is worse with lying flat. He was discharged on oxygen but has become hypoxic on nasal cannula with which he was discharged. He is currently sat'ing 89% on 4 L. It is worsened when he talks. Also associated with dyspnea on exertion. PAST MEDICAL HISTORY 1. Chronic systolic heart failure. 2. A-fib. 3. Hyperlipidemia. 4. COPD. 5. Obstructive sleep apnea, on CPAP. 6. Abdominal aortic aneurysm. 7. Gout. 8. Spinal stenosis. 9. BPH. 10. Bladder cancer. 11. Newly diagnosed adenocarcinoma of the lung. 12. History of erosive duodenitis. PAST SURGICAL HISTORY Transurethral resection of the bladder tumor. SOCIAL HISTORY The patient moved into assisted living in December of last year but has not been there in months secondary to hospitalization and rehab stays. He has a 60 pack-year history of smoking. He has not been smoking in the past few weeks. There is no alcohol or illicit drug use. FAMILY HISTORY Coronary artery disease. ALLERGIES Claritin. HOME MEDICATIONS 1. Klonopin 0.5 mg t.i.d. 2. Finasteride 5 mg daily. Unit #: [id number] #: [id number] Patient: KELSIE LESLIE 3. Lasix 20 mg in the morning. 4. Metoprolol tartrate 25 mg p.o. b.i.d. 5. Protonix 40 mg in the morning. 6. Paxil 40 mg daily. 7. Potassium chloride 20 mEq p.o. b.i.d. 8. Simvastatin 20 mg p.o. q. h.s. 9. Flomax 0.8 mg p.o. daily. 10. Eliquis 5 mg p.o. b.i.d. REVIEW OF SYSTEMS Ten point review of systems obtained and negative except as per HPI with the addition of some lumbar back pain. PHYSICAL EXAMINATION VITAL SIGNS: Temperature 98.0, pulse 74, blood pressure 141/64. GENERAL: 81-year-old male in no acute distress, appears stated age. HEENT: Pupils equally round. Extraocular movements intact. Mucous membranes dry. NECK: Supple. No JVD, no lymphadenopathy. CARDIAC: Regular rate and rhythm. No murmurs, gallops or rubs. LUNGS: He has got bilateral rales in the bases with coarse upper airway sounds bilaterally secondary to secretions. ABDOMEN: Nontender, nondistended. Positive bowel sounds. EXTREMITIES: No clubbing, cyanosis or edema. They are warm and dry. PSYCH: Alert and oriented x3. Affect is appropriate. NEUROLOGICAL: Cranial nerves II-XII intact grossly. The patient moves all extremities equally and with purpose. SKIN: No rashes, bruises or ulcers. MUSCULOSKELETAL: No muscle or joint pain, no muscle or joint swelling. EXTREMITIES: No clubbing or cyanosis, with bilateral lower extremity edema. They are warm and dry. DIAGNOSTIC STUDIES LABORATORY: Chemistries show a bicarb of 41, BUN of 3.1, white count of 11, hemoglobin 8.9, platelets 116, all of which are approximately the patient's baseline. IMAGING: Chest x-ray is read as no active disease. ASSESSMENT AND PLAN 1. Acute on chronic respiratory failure: The patient was discharged with oxygen approximately one week ago. He is now hypoxic past this baseline. He is now requiring 4 L to maintain sats in the 90s and periodically dropped into the 80s if he speaks for long periods of time. I have started the patient on IV Lasix. 2. Acute on chronic systolic heart failure: Suspicion is that exacerbation of the patient's systolic heart failure is the cause of his hypoxic respiratory failure. The patient has been started on 40 mg IV Lasix b.i.d. BMP has been ordered. 3. Debility: I have requested a PT/OT consult. 4. Atrial fibrillation: I have continued the patient's Eliquis. 5. Chronic obstructive pulmonary disease: I have continued the patient's home inhalers. He received a one-time dose of Solu-Medrol in the emergency department. 6. Adenocarcinoma of the lung: The patient is not a candidate for chemo or radiation at this time. Plan is for radiation. I have discussed this with the patient and he believes that his radiation will be curative as opposed to palliative. Unit #: [id number] #: [id number] Patient: KELSIE LESLIE 7. History of bladder cancer: The patient states that he is no longer undergoing treatments for bladder cancer. His thought is that he has been cured. 8. Prophylaxis: No pharmacological DVT prophylaxis as the patient is on Eliquis. I have placed the patient on SCDs. Dictated by Dave Kelsey M.D. JOHANN/shoshana TD: 07/20/2016 06:48 JOB #: [id number] HISTORY AND PHYSICAL X Dave Kelsey MD X HISTORY AND PHYSICAL
[~2016-07-19 23:03] MED LIST changes: +ASPIRIN81 MG PO; +BAYER CHEWABLE81 MG PO; +FINASTERIDE5 MG PO; +FLOMAX0.4 M1 DOB; +GABAPENTIN600 MG PO; +INCRUSE ELLI62.5 MCG INH; +LASIX20 MG PO; +METOPROLOL TAR25 MG PO; +PANTOPRAZOLE SO40 MG PO; +PAROXETINE HCL40 MG PO; +POTASSIUM CHLO20 ME1 PO; +PROAIR RESPICL90 MCG; +WARFARIN SODIUM3 M1 PO; +WARFARIN SODIUM6 M1 PO
[2016-07-19 23:52] LABS: BASOPHIL# 0.1 X10e3 (0-0.3); BASOPHIL% 0.8 % (0-2.5); DIFF IND YES; EOSINOPHIL# 0.2 X10e3 (0-0.7); HEMATOCRIT 30.5 % (38.0-50.0); HEMOGLOBIN 8.9 gm/dL (13.0-16.0); LYMPHOCYTE# 1.2 X10e3 (1.0-3.5); MEAN CELL VOLUME 82.7 FL (83-96); MEAN CORPUSCULAR HEMOGLOBIN 24.1 PG (28-34); MEAN CORPUSCULAR HGB CONC 29.1 g/dL (30-36); MEAN PLATELET VOLUME 9.8 FL (6.5-11.5); MONOCYTE# 1.3 X10e3 (0-1.0); MONOCYTE% 11.4 % (3.0-12.0); NEUTROPHIL# 8.2 X10e3 (1.5-7.1); NEUTROPHIL% 74.8 % (40-75); PLATELET COUNT 116 X10e3 (140-420); RED BLOOD COUNT 3.68 X10e (3.90-5.60); RED CELL DISTRIBUTION WIDTH 21.8 % (11.0-15.5)
[2016-07-20 00:06] LABS: PARTIAL THROMBOPLASTIN TIME 39.4 SECONDS (23.5-31.3); PROTHROMBIN TIME (PATIENT) 10.7 SECONDS (9.6-11.5)
[2016-07-20 00:09] LABS: ANISOCYTOSIS MOD; PLATELET ESTIMATE DECREASED (NORMAL); STOMATOCYTE PRESENT
[2016-07-20 00:10] LABS: MICROCYTOSIS SL; OVALOCYTES PRESENT
[2016-07-20 00:23] LABS: ALBUMIN SERUM 3.1 g/dL (3.5-5.0); ALKALINE PHOSPHATASE 81 U/L (32-92); ALT (SGPT) 17 U/L (10-40); AST (SGOT) 20 U/L (10-42); BILIRUBIN, DIRECT 0.3 mg/dL (0.0-0.2); BILIRUBIN,INDIRECT 0.8 mg/dL (0.0-0.9); BILIRUBIN,TOTAL 1.1 mg/dL (0.2-2.0); BLOOD UREA NITROGEN 17 mg/dL (9-23); CALCIUM SERUM 8.6 mg/dL (8.4-10.2); CARBON DIOXIDE 41 mmol/L (22-31); CHLORIDE 98 mmol/L (100-111); CREATININE SERUM 0.5 mg/dL (0.6-1.4); GLOM FILT RATE Estimated ABOVE60 mL/min (>60); GLUCOSE FASTING 131 mg/dL (70-110); POTASSIUM 4.4 mmol/L (3.5-5.1); PROTEIN TOTAL SERUM 6.5 g/dL (6.0-8.3); SODIUM 142 mmol/L (135-145)
[2016-07-20 06:39] LABS: POC - TROPONIN <0.05 ng/mL (<=0.05)
[2016-07-20 16:26] LABS: ARTERIAL BLOOD GAS CARBOXY HB 0.8 %sat (0.0-9.0); ARTERIAL BLOOD GAS HCO3 40.9 mmol/L; ARTERIAL BLOOD GAS MET HB 0.7 %sat (0.0-2.0); ARTERIAL BLOOD GAS pH 7.347 (7.350-7.450)
[2016-07-20 16:29] LABS: ARTERIAL BLOOD GAS ALLEN TEST NORMAL; ARTERIAL BLOOD GAS ART SITE LEFT RADIAL; ARTERIAL BLOOD GAS DELIVERY NASAL CANNULA; ARTERIAL BLOOD GAS PCO2 74.8 mmHg (35.0-45.0); ARTERIAL BLOOD GAS PO2 55.6 mmHg (80.0-100); ARTERIAL DRAW? YES
[2016-07-21 04:02] LABS: ARTERIAL BLD GAS O2 SATURATION 95.5 % (90.0-100.0); ARTERIAL BLOOD GAS CARBOXY HB 0.6 %sat (0.0-9.0); ARTERIAL BLOOD GAS HCO3 41.8 mmol/L; ARTERIAL BLOOD GAS MET HB 1.2 %sat (0.0-2.0); ARTERIAL BLOOD GAS pH 7.325 (7.350-7.450)
[2016-07-21 04:06] LABS: ARTERIAL BLOOD GAS ALLEN TEST Y; ARTERIAL BLOOD GAS ART SITE RIGHT RADIAL; ARTERIAL BLOOD GAS DELIVERY BIPAP; ARTERIAL BLOOD GAS PCO2 80.3 mmHg (35.0-45.0); ARTERIAL BLOOD GAS VENT MODE 16/6; ARTERIAL DRAW? YES
[2016-07-21 06:09] LABS: HEMATOCRIT 32.1 % (38.0-50.0); HEMOGLOBIN 9.2 gm/dL (13.0-16.0); MEAN CORPUSCULAR HGB CONC 28.6 g/dL (30-36); RED BLOOD COUNT 3.83 X10e (3.90-5.60); RED CELL DISTRIBUTION WIDTH 23.2 % (11.0-15.5); WHITE BLOOD COUNT 13.3 X10e3 (4.0-10.5)
[2016-07-21 06:50] LABS: FERRITIN 110 ng/mL (24-336)
[2016-07-21 07:11] LABS: ALBUMIN SERUM 3.1 g/dL (3.5-5.0); ALKALINE PHOSPHATASE 82 U/L (32-92); ALT (SGPT) 18 U/L (10-40); AST (SGOT) 19 U/L (10-42); BILIRUBIN,TOTAL 1.2 mg/dL (0.2-2.0); BLOOD UREA NITROGEN 21 mg/dL (9-23); CALCIUM SERUM 8.9 mg/dL (8.4-10.2); CARBON DIOXIDE 40 mmol/L (22-31); CHLORIDE 94 mmol/L (100-111); CREATININE SERUM 0.7 mg/dL (0.6-1.4); GLOM FILT RATE Estimated ABOVE60 mL/min (>60); GLUCOSE FASTING 96 mg/dL (70-110); IRON SERUM 24 ug/dL (45-182); POTASSIUM 4.6 mmol/L (3.5-5.1); PROTEIN TOTAL SERUM 6.5 g/dL (6.0-8.3); SODIUM 140 mmol/L (135-145); TOTAL IRON BINDING CAPACITY 380 ug/dL (252-460); TRANSFERRIN 271 mg/dL (180-329); TRANSFERRIN SATURATION 6 % (20-50)
[2016-07-22 07:21] LABS: HEMATOCRIT 33.9 % (38.0-50.0); HEMOGLOBIN 9.9 gm/dL (13.0-16.0); MEAN CELL VOLUME 83.1 FL (83-96); MEAN CORPUSCULAR HEMOGLOBIN 24.3 PG (28-34); MEAN CORPUSCULAR HGB CONC 29.2 g/dL (30-36); MEAN PLATELET VOLUME 9.8 FL (6.5-11.5); RED BLOOD COUNT 4.08 X10e (3.90-5.60); RED CELL DISTRIBUTION WIDTH 23.9 % (11.0-15.5); WHITE BLOOD COUNT 19.2 X10e3 (4.0-10.5)
[2016-07-22 08:10] LABS: ALBUMIN SERUM 3.1 g/dL (3.5-5.0); ALKALINE PHOSPHATASE 82 U/L (32-92); ALT (SGPT) 23 U/L (10-40); AST (SGOT) 25 U/L (10-42); BILIRUBIN,TOTAL 1.2 mg/dL (0.2-2.0); BLOOD UREA NITROGEN 26 mg/dL (9-23); BUN/CREATININE RATIO 43.33; CALCIUM SERUM 8.7 mg/dL (8.4-10.2); CARBON DIOXIDE 39 mmol/L (22-31); CHLORIDE 94 mmol/L (100-111); CREATININE SERUM 0.6 mg/dL (0.6-1.4); GLOM FILT RATE Estimated ABOVE60 mL/min (>60); GLUCOSE FASTING 123 mg/dL (70-110); PROTEIN TOTAL SERUM 6.4 g/dL (6.0-8.3); SODIUM 139 mmol/L (135-145)
[2016-07-22 18:40] LABS: ARTERIAL BLD GAS O2 SATURATION 97.3 % (90.0-100.0); ARTERIAL BLOOD GAS CARBOXY HB 0.3 %sat (0.0-9.0); ARTERIAL BLOOD GAS HCO3 42.5 mmol/L; ARTERIAL BLOOD GAS MET HB 0.8 %sat (0.0-2.0); ARTERIAL BLOOD GAS pH 7.402 (7.350-7.450)
[2016-07-22 18:41] LABS: ARTERIAL BLOOD GAS ALLEN TEST NORMAL; ARTERIAL BLOOD GAS ART SITE RIGHT RADIAL; ARTERIAL BLOOD GAS PCO2 68.4 mmHg (35.0-45.0); ARTERIAL DRAW? YES
[2016-07-22 18:42] LABS: ARTERIAL BLOOD GAS DELIVERY BIPAP 18/6
[2016-07-22 20:24] LABS: CK TOTAL 21 IU/L (36-174)
[2016-07-23 01:04] LABS: CK TOTAL 8 IU/L (36-174)
[2016-07-23 06:08] LABS: HEMATOCRIT 31.7 % (38.0-50.0); HEMOGLOBIN 9.3 gm/dL (13.0-16.0); MEAN CORPUSCULAR HEMOGLOBIN 24.1 PG (28-34); MEAN CORPUSCULAR HGB CONC 29.5 g/dL (30-36); MEAN PLATELET VOLUME 9.8 FL (6.5-11.5); RED BLOOD COUNT 3.87 X10e (3.90-5.60); RED CELL DISTRIBUTION WIDTH 24.2 % (11.0-15.5)
[2016-07-23 06:11] LABS: WHITE BLOOD COUNT 37.2 X10e3 (4.0-10.5)
[2016-07-23 06:38] LABS: CK TOTAL 12 IU/L (36-174)
[2016-07-23 08:29] LABS: ALKALINE PHOSPHATASE 97 U/L (32-92); ALT (SGPT) 28 U/L (10-40); AST (SGOT) 26 U/L (10-42); BLOOD UREA NITROGEN 37 mg/dL (9-23); BUN/CREATININE RATIO 30.83; CARBON DIOXIDE 38 mmol/L (22-31); CHLORIDE 92 mmol/L (100-111); CREATININE SERUM 1.2 mg/dL (0.6-1.4); GLOM FILT RATE Estimated ABOVE60 mL/min (>60); GLUCOSE FASTING 176 mg/dL (70-110); POTASSIUM 4.3 mmol/L (3.5-5.1); PROTEIN TOTAL SERUM 6.1 g/dL (6.0-8.3); SODIUM 139 mmol/L (135-145)
[2016-07-23 09:32] LABS: URINE APPEARANCE CLOUDY; URINE BLOOD 3+ (NEG); URINE COLOR DK YELLOW; URINE GLUCOSE NEG (NEG); URINE KETONE NEG (NEG); URINE LEUKOCYTE ESTERASE 2+ (NEG); URINE NITRATE NEG (NEG); URINE PROTEIN 1+ (NEG); URINE SPECIFIC GRAVITY 1.029 (1.003-1.035)
[2016-07-23 09:34] LABS: CULTURE INDICATED? YES; URBCS1 AUWI 50-100 /[HPF] (0-2); URINE BACTERIA AUWI NEG (NEGATIVE); URINE SQUAMOUS EPITHELIAL CELL NONE SEEN /[HPF]; UWBCS1 AUWI 100-200 (0-5)
[2016-07-23 09:43] LABS: U HYALINE CASTS AUWI 50-100 /[LPF]; URINE BILIRUBIN NEG (NEG); URINE MUCUS PRESENT
[2016-07-24 06:11] LABS: HEMATOCRIT 31.9 % (38.0-50.0); HEMOGLOBIN 9.2 gm/dL (13.0-16.0); LYMPHOCYTE# 0.2 X10e3 (1.0-3.5); LYMPHOCYTE% 1.1 % (17.0-45.0); MEAN CELL VOLUME 82.8 FL (83-96); MEAN CORPUSCULAR HEMOGLOBIN 23.9 PG (28-34); MEAN CORPUSCULAR HGB CONC 28.9 g/dL (30-36); MONOCYTE# 0.9 X10e3 (0-1.0); MONOCYTE% 5.2 % (3.0-12.0); NEUTROPHIL# 16.6 X10e3 (1.5-7.1); NEUTROPHIL% 93.7 % (40-75); PLATELET COUNT 104 X10e3 (140-420); RED BLOOD COUNT 3.85 X10e (3.90-5.60); RED CELL DISTRIBUTION WIDTH 24.6 % (11.0-15.5); WHITE BLOOD COUNT 17.7 X10e3 (4.0-10.5)
[2016-07-24 06:12] LABS: DIFF IND YES
[2016-07-24 06:45] LABS: PLATELET ESTIMATE NORMAL (NORMAL); RBC NORMAL YES
[2016-07-24 06:59] LABS: ALBUMIN SERUM 2.9 g/dL (3.5-5.0); ALKALINE PHOSPHATASE 76 U/L (32-92); ALT (SGPT) 24 U/L (10-40); AST (SGOT) 18 U/L (10-42); BILIRUBIN,TOTAL 1.4 mg/dL (0.2-2.0); BLOOD UREA NITROGEN 35 mg/dL (9-23); CALCIUM SERUM 8.9 mg/dL (8.4-10.2); CARBON DIOXIDE 37 mmol/L (22-31); CHLORIDE 93 mmol/L (100-111); CREATININE SERUM 0.7 mg/dL (0.6-1.4); GLOM FILT RATE Estimated ABOVE60 mL/min (>60); GLUCOSE FASTING 137 mg/dL (70-110); MAGNESIUM 1.8 mg/dL (1.6-3.0); POTASSIUM 4.3 mmol/L (3.5-5.1); SODIUM 139 mmol/L (135-145)
[2016-07-25 05:31] LABS: BASOPHIL% 0.1 % (0-2.5); HEMATOCRIT 29.8 % (38.0-50.0); HEMOGLOBIN 8.9 gm/dL (13.0-16.0); LYMPHOCYTE# 0.3 X10e3 (1.0-3.5); MEAN CELL VOLUME 83.4 FL (83-96); MEAN CORPUSCULAR HEMOGLOBIN 24.9 PG (28-34); MEAN CORPUSCULAR HGB CONC 29.9 g/dL (30-36); MEAN PLATELET VOLUME 10.1 FL (6.5-11.5); MONOCYTE# 0.8 X10e3 (0-1.0); NEUTROPHIL# 12.5 X10e3 (1.5-7.1); NEUTROPHIL% 91.9 % (40-75); PLATELET COUNT 105 X10e3 (140-420); RED BLOOD COUNT 3.57 X10e (3.90-5.60); RED CELL DISTRIBUTION WIDTH 24.6 % (11.0-15.5); WHITE BLOOD COUNT 13.6 X10e3 (4.0-10.5)
[2016-07-25 05:32] LABS: DIFF IND NO
[2016-07-25 06:41] LABS: BLOOD UREA NITROGEN 33 mg/dL (9-23); CALCIUM SERUM 8.7 mg/dL (8.4-10.2); CARBON DIOXIDE 41 mmol/L (22-31); CHLORIDE 94 mmol/L (100-111); CREATININE SERUM 0.6 mg/dL (0.6-1.4); GLOM FILT RATE Estimated ABOVE60 mL/min (>60); GLUCOSE FASTING 146 mg/dL (70-110); POTASSIUM 4.4 mmol/L (3.5-5.1); SODIUM 139 mmol/L (135-145)
[2016-07-26 09:29] LABS: BASOPHIL% 0.3 % (0-2.5); EOSINOPHIL% 0.1 % (0.0-7.0); HEMATOCRIT 34.4 % (38.0-50.0); HEMOGLOBIN 10.2 gm/dL (13.0-16.0); LYMPHOCYTE# 0.5 X10e3 (1.0-3.5); MEAN CELL VOLUME 84.7 FL (83-96); MEAN CORPUSCULAR HEMOGLOBIN 25.1 PG (28-34); MEAN CORPUSCULAR HGB CONC 29.7 g/dL (30-36); MEAN PLATELET VOLUME 10.2 FL (6.5-11.5); MONOCYTE% 6.3 % (3.0-12.0); NEUTROPHIL% 90.3 % (40-75); PLATELET COUNT 122 X10e3 (140-420); RED BLOOD COUNT 4.06 X10e (3.90-5.60); RED CELL DISTRIBUTION WIDTH 25.9 % (11.0-15.5); WHITE BLOOD COUNT 15.5 X10e3 (4.0-10.5)
[2016-07-26 09:33] LABS: DIFF IND NO
[2016-07-26 09:38] LABS: BLOOD UREA NITROGEN 24 mg/dL (9-23); CALCIUM SERUM 8.9 mg/dL (8.4-10.2); CARBON DIOXIDE 40 mmol/L (22-31); CHLORIDE 92 mmol/L (100-111); CREATININE SERUM 0.6 mg/dL (0.6-1.4); GLOM FILT RATE Estimated ABOVE60 mL/min (>60); GLUCOSE FASTING 117 mg/dL (70-110); POTASSIUM 4.4 mmol/L (3.5-5.1); SODIUM 139 mmol/L (135-145)
[2016-07-26 17:13] LABS: URINE APPEARANCE CLEAR; URINE BILIRUBIN NEG (NEG); URINE BLOOD NEG (NEG); URINE COLOR YELLOW; URINE GLUCOSE NEG (NEG); URINE KETONE NEG (NEG); URINE LEUKOCYTE ESTERASE NEG (NEG); URINE NITRATE NEG (NEG); URINE PROTEIN NEG (NEG); URINE SPECIFIC GRAVITY 1.012 (1.003-1.035)
== END 2016-07-26 16:51 | DRG 291 ==
LOC: CED 23:03 → CEDOF 07-20 05:28 → C3A PCU 07-20 06:55 → CICCU3 07-22 19:09 → C3A PCU 07-25 19:55
PROVIDERS: Emergency Medicine; Family Medicine; Internal Medicine; Internal Medicine Hematology; Nurse Practitioner
DX: I11.0 Hypertensive heart disease with heart failure (principal); J96.21 Acute and chronic respiratory failure with hypoxia; J18.9 Pneumonia, unspecified organism; I27.2 Other secondary pulmonary hypertension; D69.6 Thrombocytopenia, unspecified; C34.32 Malignant neoplasm of lower lobe, left bronchus or lung; C34.12 Malignant neoplasm of upper lobe, left bronchus or lung; J44.1 Chronic obstructive pulmonary disease with (acute) exacerbation; Z68.41 Body mass index [BMI] 40.0-44.9, adult; I50.23 Acute on chronic systolic (congestive) heart failure; E78.5 Hyperlipidemia, unspecified; G47.33 Obstructive sleep apnea (adult) (pediatric); I71.4 Abdominal aortic aneurysm, without rupture; M10.9 Gout, unspecified; N40.0 Benign prostatic hyperplasia without lower urinary tract symptoms; Z85.51 Personal history of malignant neoplasm of bladder; R53.81 Other malaise; J44.9 Chronic obstructive pulmonary disease, unspecified; Z79.01 Long term (current) use of anticoagulants; I25.10 Atherosclerotic heart disease of native coronary artery without angina pectoris; I48.2 Chronic atrial fibrillation; Z95.0 Presence of cardiac pacemaker; I73.9 Peripheral vascular disease, unspecified; F41.9 Anxiety disorder, unspecified; Z90.49 Acquired absence of other specified parts of digestive tract; Z98.42 Cataract extraction status, left eye; Z98.41 Cataract extraction status, right eye; Z96.641 Presence of right artificial hip joint; Z87.891 Personal history of nicotine dependence; I35.0 Nonrheumatic aortic (valve) stenosis; R13.10 Dysphagia, unspecified; D64.9 Anemia, unspecified; D72.829 Elevated white blood cell count, unspecified; M62.3 Immobility syndrome (paraplegic); M48.00 Spinal stenosis, site unspecified; Z66 Do not resuscitate; E66.01 Morbid (severe) obesity due to excess calories
CPT/HCPCS: 36415; 36600; 71010; 74230; 80048; 80053; 80076; 81003; 82308; 82550; 82553; 82607; 82728; 82803; 83540; 83550; 83735; 83880; 84484; 85025; 85027; 85610; 85730; 87040; 87070; 87077; 87086; 87186; 87205; 92526; 92611; 93005; 94640; 94660; 94664; 94760; 94761; 97116; 97163; 97167; 97530; 97535; 99285; G8978-GP; G8979-GP; G8980-GP; G8987-GO; G8988-GO; G8989-GO; G8996-GN; G8997-GN; J0696; J1940; J2060; J2916; J2920; J2930; J3370; J3490

== ENCOUNTER 2016-08-23 18:37 | Inpatient (IN) | payer MEDICARE ==
--- NOTE | ~2016-08-23 | CO ---
Unit #: [id number] #: [id number] Patient: KELSIE ZAPATA [id number] [address] [address] [id number] I MR#: [id number] NAME: KELSIE ZAPATA ROOM: [facility] Age: 81 Sex: M Admission Date: 08/23/2016 : 1935 Attending Physician: Dave Kelsey M.D. Primary Care Physician: Korey Bravo M.D. Consultation Date: 08/28/2016 CONSULTATION REPORT REASON FOR CONSULTATION Right knee effusion and pain. HISTORY OF PRESENT ILLNESS Mr. Zapata is a pleasant 81-year-old male who apparently was admitted to the hospital on 08/23/2016 secondary to altered mental status and fever. The patient had been in the hospital earlier in the week with respiratory failure. He had been discharged to rehab and then was brought back. Today on exam he notes right knee pain. He does report hitting his leg on a door a couple of weeks prior at rehab. He has been having some discomfort since then. He has been treated for his fever and appears to be doing better. No prior problems with the right knee. He describes a dull ache and pain with motion. He has pain with weightbearing. It has not changed much since the past three days. PAST MEDICAL HISTORY 1. Heart failure. 2. Atrial fibrillation. 3. Hyperlipidemia. 4. Chronic obstructive pulmonary disease. 5. Sleep apnea. 6. Abdominal aortic aneurysm. 7. Gout. 8. Spinal stenosis. 9. BPH. 10. History of bladder cancer. 11. History of ulcers. PAST SURGICAL HISTORY 1. Prostate surgery. 2. Pacemaker. 3. Gallbladder surgery. 4. Cervical fusion. 5. Hernia repair. 6. Colon resection. 7. Right hip replacement. 8. Right shoulder surgery. 9. Bilateral cataract surgery. 10. Cardiac ablation. 11. Cardioversion. SOCIAL HISTORY The patient lives in assisted living. He denies any alcohol, drug or smoking. Unit #: [id number] #: [id number] Patient: KELSIE ZAPATA FAMILY HISTORY Noncontributory. ALLERGIES Claritin. HOME MEDICATIONS Reviewed. CURRENT MEDICATIONS Ampicillin. REVIEW OF SYSTEMS No other pertinent positives or negatives noted other than as per history of present illness. PHYSICAL EXAMINATION GENERAL: The patient is a 81-year-old male, alert and oriented, for examination. No acute distress. VITALS: Temperature 98.5 degrees Fahrenheit, pulse 79, respiratory rate 20, blood pressure 134/79. HEENT: Head is atraumatic, normocephalic. Extraocular movements intact. Mucous membranes moist. Cervical spine midline with no jugular venous distension. NECK: Breathing normally. Chest rises symmetric. HEART: Pulses irregularly irregular. ABDOMEN: Soft, nontender and nondistended. EXTREMITIES: No clubbing, cyanosis or edema of the extremities. Examination of the right lower extremity reveals right knee effusion and warmth. No erythema. Few degrees short of full extension. Flexes to about 50 degrees. Compartments are soft. Tenderness about the knee. There is some anterolateral swelling of the leg, consistent with hematoma, likely from contusion. SKIN: No skin lesions. DIAGNOSTIC STUDIES IMAGING: No imaging of the colon. No imaging of the right knee. Negative ultrasound for the right leg. LABORATORY: White blood cell count 10.6, hemoglobin 9.5. INR 1.3 from 08/23/2016. ASSESSMENT The patient is a 81-year-old male with a right knee effusion and pain. PLAN Based on the effusion and history, will go ahead and aspirate the knee. We will evaluate for infection versus inflammatory arthropathy. He does have a history of gout. Will check for crystals. Depending on what that shows, he may need a cortisone injection versus other intervention. We will also go ahead and get x-rays and apply ice to the knee. The patient agreed with the plan. All of his questions were answered. Dictated by... Anastacio Grimaldo M.D. Unit #: [id number] #: [id number] Patient: KELSIE ZAPATA BD/gz TD: 08/28/2016 09:08 JOB #: [id number] CONSULTATION REPORT Page 1 of 1 X X CONSULTATION REPORT
--- NOTE | ~2016-08-23 | CT57 ---
[facility] A Service of [facility] & [facility] RADIOLOGY TEXT RESULTS PATIENT: KELSIE LESLIE LOCATION: [facility] 55-01 : 37 UNIT #: [id number] AGE: [address]: Dave Kelsey MD SEX: M ORDER DR: [id number] [facility] [address] [place], [place] [address] [id number] I MR#: [id number] Acc #: [id number] NAME: KELSIE LESLIE : 1935 SEX: M STUDY DATE/TIME: 08/24/2016 17:11 UNIT: [facility] ROOM: [facility] STUDY DESCRIPTION: CT Chest Wo Cont Attending Physician: Dave Kelsey M.D. Ordering Physician: Dave Kelsey M.D. Primary Care Physician: Korey Bravo M.D. MEDICAL IMAGING REPORT This report is preliminary unless electronic signature is present EXAM CT chest without contrast, 08/24/2016 HISTORY Shortness of air and fever today. Lung cancer, recently diagnosed, no reported cancer treatment. Emphysema. TECHNIQUE This CT exam was performed with one or more of the following radiation dose reduction techniques: automatic exposure control, adjustment of mA and/or kV according to patient size, and iterative reconstruction. FINDINGS CT chest without contrast is compared to CT chest 07/07/2016 The lobulated mass in the anterior left lower lobe is stable measuring 3.4 cm x 2.3 cm, corresponding to the lesion biopsied under CT guidance 06/2016, compatible with lung carcinoma. Small right pleural effusion has decreased since 07/07/2016 and smaller left pleural effusion has developed. There is persistent moderately extensive atelectasis in the posterior and inferior right lower lobe, greater than on the prior CT and there is new mild atelectasis in the posterior left lower lobe. A 7 mm nodule in the posterior lingula is stable. No adenopathy. Small calcified mediastinal and left hilar nodes. Calcified mitral annulus. IMPRESSION 1. Increased moderately extensive atelectasis in the inferior right lower lobe and increased atelectasis in the right middle lobe as compared to CT 07/07/2016. 2. Small right pleural effusion has decreased and smaller left pleural effusion has developed since the prior CT. 3. Stable lobulated mass in the anterior left lower lobe measuring 3.4 cm [facility] A Service of [facility] RADIOLOGY TEXT RESULTS PATIENT: KELSIE LESLIE LOCATION: [facility] 552-01 : 37 UNIT #: [id number] AGE: [address]: Dave Kelsey MD SEX: M ORDER DR: x 2.3 cm is compatible with lung carcinoma. This lesion was previously biopsied under CT guidance. 4. Stable 7 mm indeterminate nodule in the posterior lingula. 5. No adenopathy. Dictated by... Karlo Ozuna M.D. THIS IS AN ELECTRONICALLY VERIFIED REPORT Karlo Ozuna M.D. at 08/25/2016 10:54 PM MAXIM/dereck TD: 08/24/2016 23:10 JOB #: [id number] MEDICAL IMAGING REPORT Page 1 of 1 COPY
--- NOTE | ~2016-08-23 | CR170 ---
[facility] A Service of [facility] & [facility] RADIOLOGY TEXT RESULTS PATIENT: KELSIE LESLIE LOCATION: [facility] 55-01 : 37 UNIT #: [id number] AGE: [address]: Dave Kelsey MD SEX: M ORDER DR: [id number] [facility] [address] [place], [place] [address] [id number] I MR#: [id number] Acc #: [id number] NAME: KELSIE LESLIE : 1935 SEX: M STUDY DATE/TIME: 08/28/2016 21:24 UNIT: [facility] ROOM: [facility] STUDY DESCRIPTION: CR Knee 2 Views Rt Attending Physician: Dave Kelsey M.D. Ordering Physician: Anastacio Grimaldo M.D. Primary Care Physician: Korey Bravo M.D. MEDICAL IMAGING REPORT This report is preliminary unless electronic signature is present EXAM Right knee 2 views HISTORY Knee pain and knee effusion. Injury 2 weeks ago. FINDINGS 2 views of the right knee demonstrate moderately large suprapatellar effusion. Mild degenerative changes in the medial and lateral and patellofemoral compartments. Chondrocalcinosis in the medial and lateral compartments. IMPRESSION 1. Moderately large suprapatellar effusion. 2. No fracture. 3. Mild degenerative changes in the knee. Dictated by... Karlo Ozuna M.D. THIS IS AN ELECTRONICALLY VERIFIED REPORT Karlo Ozuna M.D. at 08/29/2016 9:12 AM DFL/cintia TD: 08/29/2016 00:08 JOB #: [id number] MEDICAL IMAGING REPORT Page 1 of 1 COPY
--- NOTE | ~2016-08-23 | CO ---
Unit #: [id number] #: [id number] Patient: KELSIE LESLIE [id number] [facility] [address] [facility] [place] [facility]. [place], [place] [address] [id number] I MR#: [id number] NAME: KELSIE LESLIE ROOM: [facility] Age: 81 Sex: M Admission Date: 08/23/2016 : 1935 Attending Physician: Dave Kelsey M.D. Primary Care Physician: Korey Bravo M.D. Consultation Date: 08/28/2016 CONSULTATION REPORT REASON FOR CONSULTATION Ventricular tachycardia and permanent atrial fibrillation. HISTORY OF PRESENT ILLNESS The patient is a 81-year-old male, previously known to Dr. Yan and [facility]. The patient has a history of nonobstructive coronary artery disease, although details are unknown. A two-dimensional echocardiogram from 06/2016 was a difficult study. Left ventricular ejection fraction was 35%-40%, mild AF with RSVP 48%, small pericardial effusion versus a fat pad. The patient is known to have permanent atrial fibrillation and permanent pacemaker secondary to sick sinus syndrome. He is on chronic anticoagulation with Eliquis. Additional past medical history includes chronic obstructive pulmonary disease, PAD, hyperlipidemia and frequent falls. In 06/2016 he was diagnosed with jab-aeaky-ixjd lung cancer. He does have a postoperative medical history of a bladder tumor that required resection in the past. The patient was recently discharged from [facility] on 07/26/2016 after being admitted for approximately 1 week with acute hypoxic respiratory failure. The patient was brought to the hospital for evaluation for confusion, delirium and hypotension. He was empirically treated with vancomycin and tobramycin. Cardiology was consulted for ventricular tachycardia and permanent atrial fibrillation. In my discussion with the patient he denies any nausea, vomiting, fever, chills, chest pain or shortness of air. He denies any chest pressure or tightness. PAST MEDICAL HISTORY 1. Nonobstructive coronary artery disease per Dr. Yan. Details unavailable. 2. Two-dimensional echocardiogram from 06/2016 was a difficult study. Left ventricular ejection fraction 35%-40%. Mild AF with RSVP of 48 mmHg. Small pericardial effusion versus fat pad. 3. Permanent atrial fibrillation on chronic anticoagulation with Eliquis. 4. Status post permanent pacemaker in 2007 with a history of sick sinus syndrome. 5. Hyperlipidemia. 6. Peripheral arterial disease with abdominal aortic aneurysm diagnosed in 2013 per scans. 7. History of falls. Unit #: [id number] #: [id number] Patient: KELSIE LESLIE 8. Yeo-rmbrp-wqqj lung cancer diagnosed in 06/2016 with history of thoracentesis. 9. History of bladder tumor with resection. 10. Chronic obstructive pulmonary disease. 11. Obstructive sleep apnea with CPAP compliance. 12. Diverticulosis. 13. Anxiety. 14. Chronic obstructive pulmonary disease. 15. Reformed tobaccoism. PAST SURGICAL HISTORY 1. Permanent pacemaker in 2007. 2. Cholecystectomy in 1973. 3. Cervical fusion 1992. 4. Hernia repair. 5. Colon resection in 1985. 6. Right wrist surgery. 7. Right hip replacement in 2002. 8. Right shoulder surgery in 2003. 9. Bilateral cataracts. 10. Cardiac ablation in 2007 and DC cardioversion in 2007. SOCIAL HISTORY The patient is a reformed smoker. There are no reports of alcohol or illicit drug abuse. FAMILY HISTORY Medically noncontributory. ALLERGIES Claritin. HOME MEDICATIONS 1. Clonazepam 1.5 mg p.o. t.i.d. 2. Finasteride 5 mg p.o. in the morning. 3. Lasix 20 mg p.o. b.i.d. 4. Metoprolol 25 mg p.o. b.i.d. 5. Protonix 40 mg p.o. daily. 6. Paroxetine 40 mg p.o. in the morning. 7. Potassium 20 mEq p.o. b.i.d. 8. Simvastatin 30 mg p.o. at night. 9. Flomax 0.8 mg p.o. in the a.m. 10. Brio Ellipta 100/25 one inhalation daily. 11. ProAir RespiClick q.i.d. 12. Gabapentin 300 mg p.o. b.i.d. 13. Aspirin 81 mg p.o. daily. 14. Folic acid 1 mg p.o. daily. 15. Eliquis 5 mg p.o. daily. 16. Nicotine patch transdermally daily. 17. Tylenol 650 mg p.o. q.4 h. p.r.n. 18. Klonopin 0.5 mg p.o. at night. 19. Hydrocodone 5/325 mg 1 tablet p.o. q.6 h. p.r.n. REVIEW OF SYSTEMS A 10-point review of systems was done and considered otherwise negative other than indicated in the history of present illness. PHYSICAL EXAMINATION Unit #: [id number] #: [id number] Patient: KELSIE LESLIE GENERAL: The patient is awake, alert and in no acute distress. VITALS: Temperature 97.9, heart rate 67, respiratory rate 21, blood pressure 125/70, oxygenating 93%. HEENT: Head is atraumatic, normocephalic. Pupils equal, round and reactive. Extraocular movement intact. No drainage from ears or nares. NECK: Supple. Trachea midline. Normal carotid upstrokes. No thyromegaly or lymphadenopathy is appreciated. CHEST: Lungs are diminished bilaterally. No wheezes, rales or rhonchi. HEART: Irregular. No murmurs, rubs or gallops. ABDOMEN: Soft, nontender and nondistended. Bowel sounds are positive in all four quadrants. No hepatosplenomegaly is appreciated. SKIN: Appears to be warm, dry and intact. EXTREMITIES: No clubbing or cyanosis. The patient has trace bilateral lower extremity edema. NEUROLOGIC: The patient is alert and oriented times three. Pleasant and conversant. No focal deficits. DIAGNOSTIC STUDIES LABORATORY: White blood cell count 10.6, hemoglobin 9.5, hematocrit 31.1, platelets 201, sodium 133, potassium 4.3, chloride 96, CO2 29, BUN 13, creatinine 0.7, glucose 96, magnesium 2. CARDIOVASCULAR: EKG shows permanent atrial fibrillation. Telemetry monitoring shows 8-beat run of v-tac. ASSESSMENT 1. Nonsustained ventricular tachycardia. 2. Permanent atrial fibrillation. 3. Sick sinus syndrome, status post permanent pacemaker. 4. Hyperlipidemia. 5. Toxic metabolic encephalopathy. 6. Sepsis. 7. Enterococcal pneumonia. 8. Right knee effusion, status post aspiration. 9. 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 10. Ejection fraction 35%-40%, with mild AF and RSVP of 48 mmHg, chronic systolic congestive heart failure. 11. Obstructive sleep apnea. 12. Reformed smoker. PLAN I have discussed this case with Dr. Abad. Will trend cardiac enzymes times two. Will check lipid panel and TSH. Will check BMP and magnesium in the morning. Will do an EKG now. The patient will be given Lasix 40 mg IV now and then 40 mg IV daily. Will place the patient on 2000 mL fluid restriction. Will ask the nurses to do strict ins and outs. Will check a BNP in the morning. Dictated by... Fernanda Kelsey A.P.R.N. for Osmin Abad M.D. AM/ellie TD: 08/28/2016 12:43 JOB #: [id number] Unit #: [id number] #: [id number] Patient: KELSIE LESLIE CONSULTATION REPORT Page 1 of 1 X Fernanda Kelsey APRN X CONSULTATION REPORT
--- NOTE | ~2016-08-23 | CR72 ---
[facility] RADIOLOGY TEXT RESULTS PATIENT: KELSIE LESLIE LOCATION: [facility] [id number] : 37 UNIT #: [id number] AGE: [address]: Lubna Henning MD SEX: M ORDER DR: [id number] [facility] [address] [facility]. [place], [place] [address] [id number] I MR#: [id number] Acc #: [id number] NAME: KELSIE LESLIE : 1935 SEX: M STUDY DATE/TIME: 08/23/2016 17:41 UNIT: [facility] ROOM: [id number] STUDY DESCRIPTION: CR Chest Single View Portable Attending Physician: Lubna Henning M.D. Ordering Physician: Rosa Maria Joshua M.D. Primary Care Physician: Korey Bravo M.D. MEDICAL IMAGING REPORT This report is preliminary unless electronic signature is present EXAM Single-view chest. INDICATIONS Shortness of air, cough and fever for 2 months. FINDINGS AP view of the chest compared to 07/25/2016. Heart and mediastinal contours are unchanged. Pulmonary nodule in the left lung is again noted. There is a right pleural effusion. No pneumothorax. IMPRESSION 1. Stable right pleural effusion. 2. Left lower lobe pulmonary nodule. Dictated by... John Flower M.D. THIS IS AN ELECTRONICALLY VERIFIED REPORT John Flower M.D. at 08/23/2016 10:07 PM MARGA/arabella TD: 08/23/2016 21:44 JOB #: [id number] MEDICAL IMAGING REPORT Page 1 of 1 COPY
--- NOTE | ~2016-08-23 | EKG ---
PATIENT: KELSIE LESLIE UNIT #: [id number] Ventricular Rate: 100 BPM Atrial Rate: 326 BPM QRS Duration: 86 ms Q-T Interval: 352 ms QTC Calculation(Bezet): 454 ms Calculated R Jelm: 49 degrees Calculated T Jelm: -106 degrees Diagnosis Line: Atrial fibrillation Diagnosis Line: ST and T wave abnormality, consider inferior Diagnosis Line: ischemia Diagnosis Line: ST and T wave abnormality, consider anterolateral Diagnosis Line: ischemia Diagnosis Line: Abnormal ECG Diagnosis Line: When compared with ECG of 23-AUG-2016 17:47, Diagnosis Line: No significant change was found Diagnosis Line: Confirmed by KRIS REINA MD ([id number]) on 08/29/2016 Diagnosis Line: 4:34:43 PM INTERPRETING MD: LATOSHA BREWER
--- NOTE | ~2016-08-23 | DS ---
Unit #: [id number] #: [id number] Patient: KELSIE LESLIE [id number] [place] [address] [facility]. [place], [place] [address] [id number] I MR#: [id number] NAME: KELSIE LESLIE ROOM: [facility] Age: 81 Sex: M Admission Date: 08/23/2016 : 1935 Discharge Date: Attending Physician: Dave Kelsey M.D. Primary Care Physician: Korey Bravo M.D. DISCHARGE SUMMARY DISCHARGE DIAGNOSES 1. Toxic-metabolic encephalopathy. 2. Severe sepsis. 3. Enterococcal pneumonia. 4. Right knee pseudogout. 5. Right lower lobe adenocarcinoma. 6. Chronic obstructive pulmonary disease. 7. Obstructive sleep apnea, on CPAP. 8. Nonsustained ventricular tachycardia. 9. Atrial fibrillation, on Eliquis. 10. Ehmyh-vd-bvtxnsy diastolic heart failure. HOSPITAL COURSE The patient is a 81-year-old male who presented to [facility] emergency department with some mental status changes. He was noted in the emergency department to be septic and a chest x-ray is inconsistent with possible pneumonia. Initial procalcitonin came back at 1.66. Patient was started on IV antibiotics and admitted. The patient ended up having positive blood cultures 2/2 growing Enterococcus susceptible to penicillins. Repeat blood cultures were negative and 2D echo revealed no vegetations. The patient's mental status changes improved quickly and he is now at baseline. As I discharge him home I am discontinuing his Klonopin as he has done well in the hospital without it and the benzodiazepine may indeed have contributed. At this time the patient's respiratory failure has largely improved and he is sating 94% on 2 L. He states he feels much better. He is being discharged back to the senior care. Additional to the above, the patient was seen in consultation by Orthopedics for some right knee swelling given his severe sepsis or to rule out a septic joint. The workup came back consistent with pseudogout. The patient had a short episode of nonsustained ventricular tachycardia and his beta pam was adjusted and he has had no further episodes. DISCHARGE MEDICATIONS 1. ProAir RespiClick q.i.d. p.r.n. 2. Flomax 0.8 mg daily. 3. Tylenol 650 p.o. q.4 h. p.r.n. 4. Eliquis 5 mg daily. 5. Gabapentin 50 mg p.o. b.i.d. Unit #: [id number] #: [id number] Patient: KELSIE LESLIE 6. Paxil 40 mg daily. 7. Nicotine patch daily. 8. Lopressor 50 mg p.o. b.i.d. 9. Breo Ellipta 100/25 one puff daily. 10. Lasix 40 mg daily. 11. Simvastatin 30 mg p.o. q.h.s. 12. Finasteride 5 mg q.a.m. 13. Aspirin 81 mg daily. 14. Pantoprazole 40 mg q.a.m. 15. Potassium chloride 20 mEq p.o. b.i.d. 16. Folic acid 1 mg p.o. daily. 17. Ampicillin 2 g q.6 h. x3 days. FOLLOWUP Patient should follow up with his primary care provider within one week. Dictated by... Dave Kelsey M.D. JOHANN/omar TD: 08/29/2016 16:48 JOB #: [id number] DISCHARGE SUMMARY Page 1 of 1 X Dave Kelsey MD X DISCHARGE SUMMARY
--- NOTE | ~2016-08-23 | XA166 ---
[facility] A Service of [facility] RADIOLOGY TEXT RESULTS PATIENT: KELSIE LESLIE LOCATION: [facility] [id number] : 37 UNIT #: [id number] AGE: [address]: VEGA CARDENAS MD SEX: M ORDER DR: [id number] [facility]. [place], [place] [address] [id number] I MR#: [id number] Acc #: [id number] NAME: KELSIE LESLIE : 1935 SEX: M STUDY DATE/TIME: 08/30/2016 10:36 UNIT: [facility] ROOM: [facility] STUDY DESCRIPTION: XA PICC Line Placement WO Port Attending Physician: Vega Cardenas M.D. Ordering Physician: Dave Kelsey M.D. Primary Care Physician: Korey Bravo M.D. MEDICAL IMAGING REPORT This report is preliminary unless electronic signature is present EXAM Right side PICC line placement INDICTIONS Need for IV access in a patient with a history of lung cancer. flung . The patient with a history of lung cancer. PRE-PROCEDURE The procedure was explained to the patient and/or patient industrial relations representative including risks, benefits, potential complications and potential for alternative forms of treatment. Informed consent was obtained, and prior to initiating the procedure a formal timeout procedure was performed. PROCEDURE Using full standard sterile barrier technique, including caps, gowns, gloves, masks, as well as sterile skin preparation and standard sterile draping, the right arm was prepped and draped in the usual fashion, and real-time sterile ultrasound guidance was used to localize an arm vein and to confirm vessel patency. A hard copy ultrasound image was recorded. After local anesthesia with 1% Xylocaine, the vein was punctured using real-time sterile ultrasound guidance, and an 0.018 guidewire was advanced into the superior vena cava, using fluoroscopic guidance. A 4-[place] single lumen PICC was then measured and deployed with the tip positioned in the superior vena cava. The position of the line was documented with a radiographic image. The line was secured in place with an adhesive dressing and an antibiotic patch was applied. Total fluoro time was 0.1 minutes. Ak was 9 mGy. IMPRESSION Successful placement of a 6-[place] dual-lumen PowerPICC via the arm under STS. [facility] A Service of [facility] RADIOLOGY TEXT RESULTS PATIENT: KELSIE LESLIE LOCATION: [place] [address] : 37 UNIT #: [id number] AGE: [address]: VEGA CARDENAS MD SEX: M ORDER DR: ultrasound and fluoroscopic guidance. The tip of the PICC is in good position in the superior vena cava. Dictated by... Patito Lynch M.D. THIS IS AN ELECTRONICALLY VERIFIED REPORT Patito Lynch M.D. at 09/01/2016 12:21 PM LUZMA/douglas TD: 08/31/2016 10:22 JOB #: [id number] MEDICAL IMAGING REPORT Page 1 of 1 COPY
--- NOTE | ~2016-08-23 | CR72 ---
[facility] A Service of [facility] & [facility] RADIOLOGY TEXT RESULTS PATIENT: KELSIE LESLIE LOCATION: [facility] : 37 UNIT #: [id number] AGE: [address]: VEGA MCRAE MD SEX: M ORDER DR: [id number] [facility] [address] [facility]. [place], [place] [address] [id number] I MR#: [id number] Acc #: [id number] NAME: KELSIE LESLIE : 1935 SEX: M STUDY DATE/TIME: 08/28/2016 4:54 UNIT: [facility] ROOM: [facility] STUDY DESCRIPTION: CR Chest Single View Portable Attending Physician: Dave Kelsey M.D. Ordering Physician: Padilla Matthews M.D. Primary Care Physician: Korey Bravo M.D. MEDICAL IMAGING REPORT This report is preliminary unless electronic signature is present EXAM AP portable chest, 08/28/2016. COMPARISON 08/25/2016 HISTORY Shortness of breath, COPD since 08/24/2016. History of lung cancer. FINDINGS An AP view is obtained portably. Cardiac size is stable. Continues to be pleural fluid and volume loss in the right lower lobe. There is a mass in the left lower lobe unchanged. Left-sided transvenous pacemaker remains in good position. CONCLUSION 1. No change in the left lower lobe lung mass. 2. Continued right-sided pleural fluid and volume loss. Dictated by... Carlos Beasley M.D. THIS IS AN ELECTRONICALLY VERIFIED REPORT Carlos Beasley M.D. at 08/30/2016 5:02 PM TRELL/anna marie TD: 08/28/2016 12:33 JOB #: [id number] MEDICAL IMAGING REPORT Page 1 of 1 COPY
--- NOTE | ~2016-08-23 | OR ---
Unit #: [id number] #: [id number] Patient: KELSIE LESLIE [id number] [place], [place] [address] [id number] I MR#: [id number] NAME: KELSIE LESLIE ROOM: 55 Date of Procedure: 08/28/2016 Admission Date: 08/23/2016 Surgeon: Anastacio Grimaldo M.D. : 1935 Attending Physician: Dave Kelsey M.D. Primary Care Physician: Korey Bravo M.D. PROCEDURE OPERATIVE NOTE PREPROCEDURE DIAGNOSIS Right knee inflammatory arthropathy. POSTPROCEDURE DIAGNOSIS Right knee inflammatory arthropathy. PROCEDURE PERFORMED Right knee aspiration. PROCEDURE On 08/28/2016 the right knee was placed in extension and over the superolateral aspect of the knee it was sterilely prepped and anesthetized with 3 mL of lidocaine 1% without epinephrine. Next, using sterile technique an 18-gauge needle was inserted into the suprapatellar pouch. Approximately 50 mL of cloudy joint fluid was removed. This was placed into a sterile specimen cup to be sent to the lab for gram stain and culture along with cell count and crystals. A band-aid was applied. The patient tolerated this well. Dictated by... Anastacio Grimaldo M.D. CAROL/ellie TD: 08/28/2016 09:24 JOB #: [id number] PROCEDURE OPERATIVE NOTE Page 1 of 1 X X PROCEDURE OPERATIVE NOTE
--- NOTE | ~2016-08-23 | HP ---
Unit #: [id number] #: [id number] Patient: KELSIE LESLIE [id number] [place], [place] [address] [id number] I MR#: [id number] NAME: KELSIE LESLIE ROOM: [address] Age: 81 Sex: M Admission Date: 08/23/2016 : 1935 Attending Physician: Lubna Henning M.D. Primary Care Physician: Korey Bravo M.D. HISTORY AND PHYSICAL CHIEF COMPLAINT 1. Altered mental status. 2. Fever. HISTORY OF PRESENT ILLNESS This is a 81-year-old gentleman who was recently discharged from this facility back on July 26, 2016 after being admitted for about a week. He was admitted with acute hypoxic respiratory failure. He does have a history of lung cancer, adenocarcinoma, permanent atrial fibrillation and morbid obesity. He was brought to the hospital for evaluation at the behest of his daughter who called this morning and it was noted that the patient was somewhat confused. At the evaluation here in the emergency room he was noted to be somewhat delirious and hypotensive. He also had a fever as well. He was treated empirically with vancomycin and tobramycin. Workups performed in the emergency room have failed to yield any source of the fever. I am seeing the patient today with his daughter. Patient unable to provide a history at this time secondary to altered mental status. REVIEW OF SYSTEMS Unobtainable at this time secondary to the patient's mental status. PAST MEDICAL HISTORY 1. Chronic systolic heart failure. 2. Atrial fibrillation, on anticoagulation. 3. Hyperlipidemia. 4. COPD. 5. Obstructive sleep apnea, on CPAP. 6. Abdominal aortic aneurysm. 7. Gout. 8. Spinal stenosis. 9. Benign prostatic hypertrophy. 10. History of bladder cancer. 11. History of erosive duodenitis. PAST SURGICAL HISTORY 1. He has had a transurethral resection of the prostate. 2. Pacemaker in 2007. 3. Gallbladder in 1973. 4. Cervical fusion in 1992. 5. Hernia repair. 6. Colon resection in 1982. 7. Right hip replacement 2002. Unit #: [id number] #: [id number] Patient: KELSIE LESLIE 8. Right shoulder surgery 2003. 9. Bilateral cataracts. 10. Cardiac ablation 2007. 11. Cardioversion 2007. SOCIAL HISTORY No tobacco use. No alcohol use. No illicit drug use. Currently a penitentiary resident at this time. ALLERGIES Claritin. MEDICATIONS Include: 1. Clonazepam 1.5 mg p.o. t.i.d. 2. Finasteride 5 mg p.o. q.a.m. 3. Lasix 20 mg p.o. b.i.d. 4. Metoprolol tartrate 25 mg p.o. b.i.d. 5. Protonix (pantoprazole) 40 mg daily. 6. Paroxetine 40 mg q.a.m. 7. Potassium 20 mEq p.o. b.i.d. 8. Simvastatin 30 mg q.h.s. 9. Flomax 0.8 mg q.a.m. 10. Breo Ellipta 100/25 one inhalation daily. 11. ProAir RespiClick q.i.d. 12. Gabapentin 300 mg p.o. b.i.d. 13. Baby aspirin 81 mg p.o. daily 14. Folic acid 1 mg p.o. daily. 15. Eliquis 5 mg p.o. daily. 16. Nicotine patch one patch transdermal daily. 17. Tylenol 650 mg q.4 h. 18. Klonopin 0.5 mg q.h.s. 19. Hydrocodone 5/325 one tablet q.6 h. p.r.n. pain. PHYSICAL EXAMINATION GENERAL APPEARANCE: On examination he was acute on chronically ill looking. VITAL SIGNS: Blood pressure 108/72, pulse 96, respiratory rate 23, temperature 98.0, saturation 96% on four liters of oxygen. HEENT: He has moist mucous membranes. NECK: Neck was supple without thyromegaly. No elevated JVD. CHEST: Exam reveals breath sounds with transmitted sounds. CARDIOVASCULAR SYSTEM: First and second heart sounds only. ABDOMEN: Full. Moves with respiration. Soft. No palpable organomegaly that I can appreciate. Positive bowel sounds. CENTRAL NERVOUS SYSTEM EXAM/NEUROLOGICAL EXAM: Limited at this time. Patient barely responds to call. SKIN: No rashes are noted but evidence of old bruises of both the upper extremities. EXTREMITIES: No cyanosis or clubbing but possible bilateral lower extremity edema. DIAGNOSTIC STUDIES LABORATORY: He had chemistries, glucose of 117, BUN and creatinine 15 and 0.6, sodium and potassium 132 and 3.9, chloride and bicarbonate 93 and 31 respectively, alkaline phosphatase of 117. He had a CBC, WBC of 13.6, hemoglobin and hematocrit 12.1 and 32.9, with a platelet count of 270. He had a urinalysis which was completely negative. Unit #: [id number] #: [id number] Patient: KELSIE LESLIE Urobilinogen 4.0. He had lactic acid of 2.1. ASSESSMENT AND PLAN 1. Hypotension: He received IV 500 mL bolus in the ER, was started on Zosyn, vancomycin and tobramycin in the emergency room. He has been seen by Pulmonary as well. Tobramycin has been discontinued and he was started on cefepime 1 g q.12 h. (1) . Other problems include: 2. Chronic pain. 3. Chronic benzodiazepines. 4. Altered mental status: I believe this is multifactorial. It is possible that his medications may have contributed to this. However in light of his fever there may be some other cause alluding to the etiology of his altered mental status or he may just be declining. 5. Chronic obstructive pulmonary disease. 6. Obstructive sleep apnea. 7. Non-small cell lung cancer. (2) does not show any evidence of pneumonia. 8. Atrial fibrillation: He is on Eliquis. 9. Check CBC and BMP in the morning, 10. Code Status: The patient is a DNR. I personally discussed with the patient's daughter and I again reiterated code status and options of care. Would admit him to the ICU for now in light of his altered mental status and his hypotension; should he stabilize, will transition him out as soon as possible. Time spent on admission is about 32 minutes. Dictated by Yolande Prince/omar TD: 08/23/2016 20:10 JOB #: [id number] HISTORY AND PHYSICAL Page 1 of 1 X Lubna Henning MD HISTORY AND PHYSICAL
--- NOTE | ~2016-08-23 | DS ---
Unit #: [id number] #: [id number] Patient: KELSIE LESLIE [id number] [address] [address] [id number] I MR#: [id number] NAME: KELSIE LESLIE ROOM: 55 Age: 81 Sex: M Admission Date: 08/23/2016 : 1935 Discharge Date: 09/01/2016 Attending Physician: Emmett Cardenas M.D. Primary Care Physician: Korey Bravo M.D. DISCHARGE SUMMARY DISCHARGE DIAGNOSES 1. Toxic metabolic encephalopathy. 2. Severe sepsis. 3. Enterococcal bacteremia with sepsis. 4. Acinetobacter pneumonia. 5. Atrial fibrillation. 6. Right lower lobe pneumonia. 7. Chronic obstructive pulmonary disease. 8. Obstructive sleep apnea. 9. Acute on chronic diastolic heart failure. 10. Right knee effusion status post injection of steroid. HOSPITAL COURSE See the H and P for hospital course and discharge summary dictated on August 29 for details. The patient has been accepted at rehab on August 29, but due to (1) bed not available, the patient's discharge was on hold. Today the patient has been accepted at rehab in stable condition. The patient is status post right knee injection and is feeling better with ice packs. The patient is tolerating the antibiotics for enterococcal sepsis and Acinetobacter pneumonia. The patient stated he had colonoscopy many years and recommended to repeat colonoscopy as an outpatient. The patient's Enterococcus was susceptible to penicillin and repeat (2) tests were negative and two-D echo revealed no vegetation. The patient's toxic metabolic encephalopathy is resolved. PHYSICAL EXAMINATION GENERAL: On examination the patient is alert, awake and doing physical therapy of the knee. VITALS: Temperature 97.5, pulse 75, respirations 16, blood pressure 117/69. HEENT: Head is atraumatic, normocephalic. Pupils are equal, round and reactive to light and accommodation. LUNGS: Decreased air entry at the bases. HEART: Regular rate and rhythm. ABDOMEN: Soft. Positive bowel sounds. Extended belly. EXTREMITIES: The patient's right knee is status post injection. NEUROLOGIC: Alert, awake, oriented. DIAGNOSTIC STUDIES LAB DATA: Glucose 91, BUN 14, creatinine 0.6, sodium 135, potassium 4.1, chloride 97, bicarb 23, calcium 7.9. WBC 10.9, hemoglobin 9.28, hematocrit 29.8, platelets 232. [facility]ULTANTS Unit #: [id number] #: [id number] Patient: KELSIE LESLIE 1. Dr. Grimaldo for orthopedics. 2. Dr. Abad from cardiology. 3. Pulmonary. DISCHARGE MEDICATIONS 1. ProAir. 2. Flomax. 3. Tylenol. 4. Eliquis. 5. Gabapentin. 6. Paxil. 7. Nicotine. 8. Lopressor. 9. Breo Ellipta. 10. Lasix. 11. Simvastatin. 12. Finasteride. 13. Aspirin. 14. Pantoprazole. 15. Potassium chloride. 16. Folic acid. 17. Ampicillin 2 grams q.6 for 3 more days. NOTE: For the dosage and frequency, see the discharge summary on August 29, discharge summary done in detail by Dr. Kelsey. FOLLOWUP Patient to follow with primary care in 1 week. DISPOSITION/DISCHARGE CONDITION Patient discharged to rehab in stable condition. RECOMMENDATIONS Outpatient colonoscopy for the enterococcal bacteremia. Dictated by... Yolande Franco TD: 09/01/2016 13:29 JOB #: [id number] DISCHARGE SUMMARY Page 1 of 1 X X DISCHARGE SUMMARY
--- NOTE | ~2016-08-23 | CT71 ---
[facility] A Service [facility] [place] [facility] RADIOLOGY TEXT RESULTS PATIENT: KELSIE LESLIE LOCATION: [facility] : 37 UNIT #: [id number] AGE: [address]: Dave Kelsey MD SEX: M ORDER DR: [id number] [place] [id number] [facility] [place], [place] [address] [id number] I MR#: [id number] Acc #: [id number] NAME: KELSIE LESLIE. : 1935 SEX: M STUDY DATE/TIME: 08/23/2016 21:49 UNIT: [facility] ROOM: 82703 STUDY DESCRIPTION: CT Head Wo Contrast Attending Physician: Lubna Henning M.D. Ordering Physician: Padilla Matthews M.D. Primary Care Physician: Korey Bravo M.D. MEDICAL IMAGING REPORT This report is preliminary unless electronic signature is present EXAM CT head. INDICATIONS Confusion. Temporary encephalopathy for 1 day. Altered mental status. TECHNIQUE CT head without contrast. COMPARISON CT head dated 09/07/2014. FINDINGS No acute intracranial hemorrhage, mass lesion, or acute infarct. There is generalized global cerebral atrophy. Ventricles and basilar cisterns are normal in size and configuration. No extraaxial collections. No acute osseous abnormalities. IMPRESSION No acute intracranial findings. Atrophy and chronic small vessel changes. Dictated by... John Flower M.D. THIS IS AN ELECTRONICALLY VERIFIED REPORT John Flower M.D. at 08/24/2016 2:32 PM MARGA/asaf TD: 08/24/2016 01:50 JOB #: [id number] [facility] A [facility] [place] [facility] RADIOLOGY TEXT RESULTS PATIENT: KELSIE LESLIE LOCATION: [facility] : 37 UNIT #: [id number] AGE: [address]: Dave Kelsey MD SEX: M ORDER DR: MEDICAL IMAGING REPORT Page 1 of 1 COPY
--- NOTE | ~2016-08-23 | EKG ---
PATIENT: KELSIE LESLIE UNIT #: [id number] Ventricular Rate: 97 BPM Atrial Rate: 75 BPM QRS Duration: 86 ms Q-T Interval: 356 ms QTC Calculation(Bezet): 452 ms Calculated R Lytton: 29 degrees Calculated T Lytton: -142 degrees Diagnosis Line: Atrial fibrillation Diagnosis Line: ST and T wave abnormality, consider inferior Diagnosis Line: ischemia Diagnosis Line: ST and T wave abnormality, consider anterolateral Diagnosis Line: ischemia Diagnosis Line: Abnormal ECG Diagnosis Line: When compared with ECG of 22-JUL-2016 18:43, Diagnosis Line: QT has lengthened Diagnosis Line: Confirmed by KRIS REINA MD ([id number]) on 08/24/2016 Diagnosis Line: 11:21:12 PM INTERPRETING MD: LATOSHA BREWER
--- NOTE | ~2016-08-23 | OR ---
Unit #: [id number] #: [id number] Patient: KELSIE LESLIE [id number] [address] [place], [place] [address] [id number] I MR#: [id number] NAME: KELSIE LESLIE ROOM: 552 Date of Procedure: 08/30/2016 Admission Date: 08/23/2016 Surgeon: Anastacio Grimaldo M.D. : 1935 Attending Physician: Dave Kelsey M.D. Primary Care Physician: Korey Bravo M.D. PROCEDURE OPERATIVE NOTE PROCEDURE Right knee injection for osteoarthritis, possible pseudogout. DESCRIPTION OF PROCEDURE The patient's right knee was injected with 2 mL of 1% Xylocaine with 1 mL of 80 mg of Depo-Medrol sterile technique with alcohol prep. The patient tolerated the procedure well. There were no apparent complications. Sterile dressing was applied. Dr. Grimaldo will continue to follow the patient. He can see the patient in the office if he is discharged today. Dictated by... Laci Wood P.A.-C- for Anastacio Grimaldo M.D. KF/shoshana TD: 08/30/2016 09:02 JOB #: [id number] PROCEDURE OPERATIVE NOTE Page 1 of 1 X X PROCEDURE OPERATIVE NOTE
--- NOTE | ~2016-08-23 | CO ---
Unit #: [id number] #: [id number] Patient: KELSIE ZAPATA [id number] [address] [place], [place] [address] [id number] I MR#: [id number] NAME: KELSIE ZAPATA ROOM: 82988 Age: 81 Sex: M Admission Date: 08/23/2016 : 1935 Attending Physician: Lubna Henning M.D. Primary Care Physician: Korey Bravo M.D. Consultation Date: 08/23/2016 CONSULTATION REPORT HISTORY OF PRESENT ILLNESS Mr. Zapata is a 81-year-old white male usually followed by Dr. 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 He has been in a rehab facility in order to gain strength so he could be considered for radiation therapy to the lesion. He also has a history of chronic congestive heart failure, atrial fibrillation maintained on anticoagulation, abdominal aortic aneurysm, hyperlipidemia, chronic pain. Apparently, according to his family, he had been more confused and hallucinating and became worse over the last 24 hours. He had a low-grade fever here in the emergency room. Family said he usually does not run a fever. He has really not had much in the way of cough. He denies any dysuria. Denies any headache. Here in the emergency room, his temperature was recorded at 98 degrees. His blood pressure was initially 108/72 but apparently dipped to 80 and was given 500 mL of normal saline. He has also received Zosyn, vancomycin and tobramycin and some Tylenol. We were asked to see. No arterial blood gases have been done. His EKG revealed atrial fibrillation. His chest x-ray has been personally reviewed and reveals some slight haziness on the right with possibly some fluid in the fissure consistent with a small pleural effusion. There is no evidence of consolidation. PAST MEDICAL HISTORY Significant for: 1. COPD. 2. AIDAN. 3. Chronic systolic congestive heart failure. 4. Atrial fibrillation. 5. Hyperlipidemia. 6. Abdominal aortic aneurysm. 7. Spinal stenosis with chronic pain. 8. BPH. 9. Adenocarcinoma of the lung, left lower lobe. 10. History of bladder cancer. PAST SURGICAL HISTORY Transurethral resection of the bladder tumor. HOME MEDICATIONS 1. Clonazepam. 2. Finasteride. 3. Lasix. 4. Metoprolol. Unit #: [id number] #: [id number] Patient: KELSIE ZAPATA 5. Protonix. 6. Paxil. 7. Potassium. 8. Simvastatin. 9. Flomax. 10. Breo. 11. ProAir. 12. Gabapentin. 13. Zoya aspirin 81 mg. 14. Folic acid. 15. Eliquis 5 mg. 16. Nicotine patch. 17. Tylenol. 18. Klonopin. 19. Hydrocodone. ALLERGIES Claritin. SOCIAL HISTORY Been in rehab. Usually uses a motorized scooter. 10-wksl-fake history of smoking. No recent smoking. No alcohol or illicit drugs. FAMILY HISTORY Coronary artery disease. REVIEW OF SYSTEMS Difficult to obtain due to somnolence. PHYSICAL EXAMINATION VITAL SIGNS: Blood pressure 108/70, pulse 96, respiratory rate 23, temperature 100.6. GENERAL: White male in no distress. Lying in bed. Obese. HEENT: Normocephalic, atraumatic. Pupils equal, round, reactive. Sclerae anicteric. Nasal passages patent. Posterior pharynx crowded. NECK: Supple, thick. Trachea midline. No cervical or supraclavicular lymphadenopathy. LUNGS: Relatively clear bilaterally. HEART: Irregularly irregular rhythm. Could not appreciate murmur, rub or gallop. ABDOMEN: Nontender. Bowel sounds are present. No hepatosplenomegaly. EXTREMITIES: Without clubbing, cyanosis, or edema. NEUROLOGIC: Awake, he does respond, he moves all extremities. He is oriented to person, place and time. Does not know president. SKIN: Warm and dry. Residual hematoma on right vail. DIAGNOSTIC STUDIES LABORATORY: No arterial blood gases have been done. Chemistry is reviewed, sodium 132, creatinine 0.06, glucose 117, calcium 7.9, alkaline phosphatase 117, lactic acid 2.1. Coags were normal. White count 13,600, hematocrit 32.9, platelet count normal. Influenza A and B are negative. Urinalysis unremarkable. Negative leukocyte esterase. IMPRESSION 1. Altered mental status. 2. Leukocytosis with mild fever, rule out infection as etiology but no gross evidence of pneumonia or urinary tract infection. 3. Chronic benzodiazepines and narcotics. Unit #: [id number] #: [id number] Patient: KELSIE ZAPATA 4. Chronic obstructive pulmonary disease. 5. Obstructive sleep apnea, maintained on CPAP. 6. Left lower lobe adenocarcinoma. 7. Chronic systolic congestive heart failure with history of transudative right pleural effusion. 8. Chronic atrial fibrillation maintained on Eliquis. 9. DNR status. PLAN 1. Would go ahead and cover with broad-spectrum antibiotics for possible infection although site undetermined. No gross evidence of pneumonia or urinary tract infection. Will evaluate other causes of altered mental status. Check arterial blood gases to rule out hypercarbia and CO2 narcosis. 2. Will check serum ammonia level. 3. Would recommend holding benzodiazepines and narcotics. 4. Will also check procalcitonin level. 5. Will continue home medications. 6. Will check head CT to rule out bleed given the fact that he is on Eliquis although I think that is unlikely. 7. Will discontinue Lovenox given the fact that he is on Eliquis. 8. Will make further recommendations pending this. Dictated by... Padilla Matthews M.D. SAI/arabella TD: 08/23/2016 20:17 JOB #: [id number] CONSULTATION REPORT Page 1 of 1 X Padilla Matthews MD X CONSULTATION REPORT
--- NOTE | ~2016-08-23 | CR72 ---
[facility]. [facility] A Service of [facility] RADIOLOGY TEXT RESULTS PATIENT: KELSIE LESLIE LOCATION: [facility] 55- : 37 UNIT #: [id number] AGE: [address]: Dave Kelsey MD SEX: M ORDER DR: [id number] [facility] [address]. [place], [place] [address] [id number] I MR#: [id number] Acc #: [id number] NAME: KELSIE LESLIE : 1935 SEX: M STUDY DATE/TIME: 08/25/2016 8:10 UNIT: [facility] ROOM: [facility] STUDY DESCRIPTION: CR Chest Single View Portable Attending Physician: Dave Kelsey M.D. Ordering Physician: Padilla Matthews M.D. Primary Care Physician: Korey Bravo M.D. MEDICAL IMAGING REPORT This report is preliminary unless electronic signature is present EXAM Portable chest x-ray 08/25/2016 HISTORY Short of air. 3 days. History of lung cancer, atrial fibrillation, pacemaker. AP lordotic left anterior oblique view of the chest is presented. COMPARISON STUDIES Comparison to CT chest 08/24/2016 and chest radiograph 08/23/2016. FINDINGS The cardiac pacemaker is unchanged. Stable cardiac enlargement. Pulmonary vasculature prominent, marginally less so than on prior examination suggesting some improvement in vascular congestion. There continue to be increased patchy and linear densities in the central and lower lung zones likely reflecting some degree of edema. There is a new moderate right pleural effusion. The nodule at left lung base is unchanged. This has undergone previous sampling. Correlate with pathology results. This likely reflects the site of patient's stated pulmonary malignancy. There may be a trace left pleural effusion. There is no pneumothorax. Dictated by... Carlos Multani M.D. THIS IS AN ELECTRONICALLY VERIFIED REPORT Carlos Multani M.D. at 08/26/2016 5:36 PM [place] TD: 08/25/2016 16:40 JOB #: [id number] [facility] A Service of [facility] RADIOLOGY TEXT RESULTS PATIENT: KELSIE LESLIE LOCATION: [facility] [id number] : 37 UNIT #: [id number] AGE: [address]: Dave Kelsey MD SEX: M ORDER DR: MEDICAL IMAGING REPORT Page 1 of 1 COPY
--- NOTE | ~2016-08-23 | US85 ---
[facility] A Service [facility] RADIOLOGY TEXT RESULTS PATIENT: KELSIE LESLIE LOCATION: [place] [address] : 37 UNIT #: [id number] AGE: [address]: Dave Kelsey MD SEX: M ORDER DR: [id number] [place] [id number] [facility] [place], [place] [address] [id number] I MR#: [id number] Acc #: [id number] NAME: KELSIE LESLIE. : 1935 SEX: M STUDY DATE/TIME: 08/27/2016 19:17 UNIT: [facility] ROOM: [facility] STUDY DESCRIPTION: LE Veins Unilat or Ltd Stdy Attending Physician: Dave Kelsey M.D. Ordering Physician: Dave Kelsey M.D. Primary Care Physician: Korey Bravo M.D. MEDICAL IMAGING REPORT This report is preliminary unless electronic signature is present EXAM Left lower extremity venous ultrasound HISTORY Left calf swelling today. TECHNIQUE Venous ultrasound examination of the left lower extremity was performed using grayscale, spectral Doppler and color flow Doppler imaging. FINDINGS The examination is negative. There is no evidence of left lower extremity deep venous thrombus from the groin to the lower calf. Visualized greater saphenous vein is also patent. IMPRESSION Negative examination. No evidence of left lower extremity deep venous thrombosis. Dictated by... Karlo Ozuna M.D. THIS IS AN ELECTRONICALLY VERIFIED REPORT Karlo Ozuna M.D. at 08/28/2016 11:18 PM DFL/rnr TD: 08/28/2016 02:46 JOB #: [id number] [facility] A Service [facility] RADIOLOGY TEXT RESULTS PATIENT: KELSIE LESLIE LOCATION: [facility] : 37 UNIT #: [id number] AGE: [address]: Dave Kelsey MD SEX: M ORDER DR: MEDICAL IMAGING REPORT Page 1 of 1 COPY
[2016-08-23 17:10] LABS: URINE SOURCE CLEAN CATCH
[2016-08-23 17:15] LABS: URINE APPEARANCE CLEAR; URINE BLOOD NEG (NEG); URINE COLOR DK YELLOW; URINE GLUCOSE NEG (NEG); URINE KETONE NEG (NEG); URINE LEUKOCYTE ESTERASE NEG (NEG); URINE NITRATE NEG (NEG); URINE PH 5.5 (5-8); URINE PROTEIN NEG (NEG); URINE SPECIFIC GRAVITY 1.018 (1.003-1.035)
[2016-08-23 17:18] LABS: BASOPHIL# 0.1 X10e3 (0-0.3); BASOPHIL% 0.8 % (0-2.5); EOSINOPHIL% 0.1 % (0.0-7.0); HEMATOCRIT 32.9 % (38.0-50.0); HEMOGLOBIN 10.1 gm/dL (13.0-16.0); LYMPHOCYTE# 0.8 X10e3 (1.0-3.5); LYMPHOCYTE% 5.9 % (17.0-45.0); MEAN CELL VOLUME 89.1 FL (83-96); MEAN CORPUSCULAR HEMOGLOBIN 27.4 PG (28-34); MEAN CORPUSCULAR HGB CONC 30.7 g/dL (30-36); MEAN PLATELET VOLUME 9.1 FL (6.5-11.5); MONOCYTE# 1.3 X10e3 (0-1.0); MONOCYTE% 9.5 % (3.0-12.0); NEUTROPHIL# 11.4 X10e3 (1.5-7.1); NEUTROPHIL% 83.7 % (40-75); PLATELET COUNT 270 X10e3 (140-420); WHITE BLOOD COUNT 13.6 X10e3 (4.0-10.5)
[2016-08-23 17:21] LABS: URINE BILIRUBIN NEG (NEG)
[2016-08-23 17:22] LABS: CULTURE INDICATED? NO
[2016-08-23 17:24] LABS: DIFF IND YES
[2016-08-23 17:31] LABS: INR 1.3; PARTIAL THROMBOPLASTIN TIME 44.6 SECONDS (23.5-31.3); PROTHROMBIN TIME (PATIENT) 13.3 SECONDS (9.6-11.5)
[2016-08-23 17:43] LABS: PLATELET ESTIMATE NORMAL (NORMAL)
[2016-08-23 17:44] LABS: ALBUMIN SERUM 1.9 g/dL (3.5-5.0); BILIRUBIN, DIRECT 0.4 mg/dL (0.0-0.2); BILIRUBIN,INDIRECT 0.8 mg/dL (0.0-0.9); BILIRUBIN,TOTAL 1.2 mg/dL (0.2-2.0); CALCIUM SERUM 7.9 mg/dL (8.4-10.2); CREATININE SERUM 0.6 mg/dL (0.6-1.4); GLOM FILT RATE Estimated 95.7 mL/min (>60); POIKILOCYTOSIS SL; POLYCHROMASIA SL; POTASSIUM 3.9 mmol/L (3.5-5.1); PROTEIN TOTAL SERUM 6.7 g/dL (6.0-8.3); STOMATOCYTE PRESENT
[2016-08-23 17:45] LABS: OVALOCYTES PRESENT
[2016-08-23 17:46] LABS: INFLUENZA A NEG (NEG); INFLUENZA B NEG (NEG)
[2016-08-23 17:46] LABS: HYPOCHROMIA SL
[2016-08-23 18:18] LABS: POC - CKMB 1.5 ng/mL (0.0-7.9); POC - TROPONIN <0.05 ng/mL (<=0.05)
[2016-08-23] MEDS ORDERED: FOLIC ACID1 MG PO (19:24)
[2016-08-23] MEDS ORDERED: ELIQUIS5 MG PO (19:25)
[2016-08-23] MEDS ORDERED: NICOTINE P1 PATCH .1 TD (19:25)
[2016-08-23] MEDS ORDERED: TYL325 PO (19:26)
[2016-08-23] MEDS ORDERED: KLONOPIN0.5 MG PO (19:26)
[2016-08-23] MEDS ORDERED: HYDROCODON-ACE1 EAC7 PO (19:27)
[2016-08-23 19:45] LABS: POC - CKMB 1.2 ng/mL (0.0-7.9); POC - TROPONIN <0.05 ng/mL (<=0.05)
[2016-08-23 21:29] LABS: ARTERIAL BLD GAS O2 SATURATION 95.5 % (90.0-100.0); ARTERIAL BLOOD GAS ALLEN TEST NORMAL; ARTERIAL BLOOD GAS ART SITE LEFT RADIAL; ARTERIAL BLOOD GAS CARBOXY HB 1.4 %sat (0.0-9.0); ARTERIAL BLOOD GAS DELIVERY NASAL CANNULA; ARTERIAL BLOOD GAS HCO3 32.5 mmol/L; ARTERIAL BLOOD GAS MET HB 0.6 %sat (0.0-2.0); ARTERIAL BLOOD GAS PCO2 44.9 mmHg (35.0-45.0); ARTERIAL BLOOD GAS PO2 91.6 mmHg (80.0-100); ARTERIAL BLOOD GAS pH 7.468 (7.350-7.450); ARTERIAL DRAW? YES
[2016-08-24 05:44] LABS: BASOPHIL% 0.4 % (0-2.5); EOSINOPHIL% 0.3 % (0.0-7.0); HEMATOCRIT 29.8 % (38.0-50.0); HEMOGLOBIN 9.3 gm/dL (13.0-16.0); LYMPHOCYTE# 0.7 X10e3 (1.0-3.5); MEAN CELL VOLUME 88.8 FL (83-96); MEAN CORPUSCULAR HEMOGLOBIN 27.7 PG (28-34); MEAN CORPUSCULAR HGB CONC 31.2 g/dL (30-36); MEAN PLATELET VOLUME 8.7 FL (6.5-11.5); MONOCYTE# 1.3 X10e3 (0-1.0); MONOCYTE% 10.6 % (3.0-12.0); NEUTROPHIL# 9.9 X10e3 (1.5-7.1); NEUTROPHIL% 82.7 % (40-75); PLATELET COUNT 201 X10e3 (140-420); RED BLOOD COUNT 3.36 X10e (3.90-5.60); RED CELL DISTRIBUTION WIDTH 27.5 % (11.0-15.5)
[2016-08-24 05:46] LABS: DIFF IND NO
[2016-08-24 06:14] LABS: CALCIUM SERUM 7.8 mg/dL (8.4-10.2); CREATININE SERUM 0.4 mg/dL (0.6-1.4); POTASSIUM 3.4 mmol/L (3.5-5.1)
[2016-08-24 12:31] LABS: THYROID STIMULATING HORMONE 2.32 uIU/ml (0.34-5.60)
[2016-08-24 12:38] LABS: FREE THYROXIN (T4) 1.17 ng/dL (0.58-1.64)
[2016-08-25 07:51] LABS: HEMATOCRIT 29.4 % (38.0-50.0); HEMOGLOBIN 9.3 gm/dL (13.0-16.0); MEAN CELL VOLUME 89.6 FL (83-96); MEAN CORPUSCULAR HEMOGLOBIN 28.3 PG (28-34); MEAN CORPUSCULAR HGB CONC 31.5 g/dL (30-36); MEAN PLATELET VOLUME 9.1 FL (6.5-11.5); RED BLOOD COUNT 3.28 X10e (3.90-5.60); RED CELL DISTRIBUTION WIDTH 27.1 % (11.0-15.5); WHITE BLOOD COUNT 11.5 X10e3 (4.0-10.5)
[2016-08-25 08:18] LABS: CALCIUM SERUM 7.7 mg/dL (8.4-10.2); CREATININE SERUM 0.7 mg/dL (0.6-1.4); GLOM FILT RATE Estimated 89.8 mL/min (>60); POTASSIUM 3.7 mmol/L (3.5-5.1)
[2016-08-26 06:16] LABS: HEMATOCRIT 31.8 % (38.0-50.0); HEMOGLOBIN 9.9 gm/dL (13.0-16.0); MEAN CELL VOLUME 90.8 FL (83-96); MEAN CORPUSCULAR HEMOGLOBIN 28.1 PG (28-34); MEAN PLATELET VOLUME 9.4 FL (6.5-11.5); RED BLOOD COUNT 3.5 X10e (3.90-5.60); RED CELL DISTRIBUTION WIDTH 27.5 % (11.0-15.5); WHITE BLOOD COUNT 12.5 X10e3 (4.0-10.5)
[2016-08-26 06:31] LABS: PROCALCITONIN 1.29 NG/ML
[2016-08-26 07:06] LABS: ALBUMIN SERUM 1.8 g/dL (3.5-5.0); BILIRUBIN,TOTAL 0.6 mg/dL (0.2-2.0); CALCIUM SERUM 7.8 mg/dL (8.4-10.2); CREATININE SERUM 0.5 mg/dL (0.6-1.4); GLOM FILT RATE Estimated 103.1 mL/min (>60); MAGNESIUM 2.1 mg/dL (1.6-3.0); POTASSIUM 4.4 mmol/L (3.5-5.1); PROTEIN TOTAL SERUM 6.1 g/dL (6.0-8.3)
[2016-08-27 12:09] LABS: HEMATOCRIT 29.5 % (38.0-50.0); HEMOGLOBIN 9.1 gm/dL (13.0-16.0); MEAN CELL VOLUME 90.6 FL (83-96); MEAN CORPUSCULAR HEMOGLOBIN 27.9 PG (28-34); MEAN CORPUSCULAR HGB CONC 30.8 g/dL (30-36); RED BLOOD COUNT 3.26 X10e (3.90-5.60); RED CELL DISTRIBUTION WIDTH 27.1 % (11.0-15.5); WHITE BLOOD COUNT 11.1 X10e3 (4.0-10.5)
[2016-08-27 12:34] LABS: CALCIUM SERUM 7.8 mg/dL (8.4-10.2); CREATININE SERUM 0.4 mg/dL (0.6-1.4); POTASSIUM 4.2 mmol/L (3.5-5.1)
[2016-08-28 05:19] LABS: HEMATOCRIT 31.1 % (38.0-50.0); HEMOGLOBIN 9.5 gm/dL (13.0-16.0); MEAN CELL VOLUME 92.2 FL (83-96); MEAN CORPUSCULAR HEMOGLOBIN 28.2 PG (28-34); MEAN CORPUSCULAR HGB CONC 30.6 g/dL (30-36); MEAN PLATELET VOLUME 9.3 FL (6.5-11.5); RED BLOOD COUNT 3.38 X10e (3.90-5.60); RED CELL DISTRIBUTION WIDTH 27.1 % (11.0-15.5); WHITE BLOOD COUNT 10.6 X10e3 (4.0-10.5)
[2016-08-28 06:23] LABS: BUN/CREATININE RATIO 18.57; CALCIUM SERUM 7.8 mg/dL (8.4-10.2); CREATININE SERUM 0.7 mg/dL (0.6-1.4); GLOM FILT RATE Estimated 89.8 mL/min (>60); POTASSIUM 4.3 mmol/L (3.5-5.1)
[2016-08-28 10:03] LABS: BF CRYSTAL EXAM CA PYROPHOSPHATE; BODY FLUID APPEARANCE HAZY; BODY FLUID SOURCE SYNOVIAL
[2016-08-28 14:59] LABS: CHOLESTEROL 86 mg/dL (0-200); HDL CHOLESTEROL 23 mg/dL (29-75); LDL CHOLESTEROL 47 mg/dL ([, -130]); LDL/HDL RATIO 2 RATIO (0-4); TRIGLYCERIDES 78 mg/dL (10-160)
[2016-08-28 15:22] LABS: CK TOTAL 9 IU/L (36-174)
[2016-08-28 19:51] LABS: CK TOTAL 8 IU/L (36-174)
[2016-08-29 07:29] LABS: HEMATOCRIT 28.5 % (38.0-50.0); HEMOGLOBIN 8.9 gm/dL (13.0-16.0); MEAN CELL VOLUME 90.9 FL (83-96); MEAN CORPUSCULAR HEMOGLOBIN 28.3 PG (28-34); MEAN CORPUSCULAR HGB CONC 31.1 g/dL (30-36); RED BLOOD COUNT 3.13 X10e (3.90-5.60); RED CELL DISTRIBUTION WIDTH 26.7 % (11.0-15.5); WHITE BLOOD COUNT 10.5 X10e3 (4.0-10.5)
[2016-08-29 07:44] LABS: CALCIUM SERUM 7.9 mg/dL (8.4-10.2); CREATININE SERUM 0.5 mg/dL (0.6-1.4); GLOM FILT RATE Estimated 103.1 mL/min (>60); MAGNESIUM 1.7 mg/dL (1.6-3.0); POTASSIUM 4.1 mmol/L (3.5-5.1)
[2016-08-30 06:19] LABS: HEMATOCRIT 29.8 % (38.0-50.0); HEMOGLOBIN 9.2 gm/dL (13.0-16.0); MEAN CORPUSCULAR HEMOGLOBIN 28.1 PG (28-34); MEAN CORPUSCULAR HGB CONC 30.9 g/dL (30-36); MEAN PLATELET VOLUME 8.7 FL (6.5-11.5); RED BLOOD COUNT 3.27 X10e (3.90-5.60); WHITE BLOOD COUNT 10.9 X10e3 (4.0-10.5)
[2016-08-30 07:25] LABS: BUN/CREATININE RATIO 23.33; CALCIUM SERUM 7.9 mg/dL (8.4-10.2); CREATININE SERUM 0.6 mg/dL (0.6-1.4); GLOM FILT RATE Estimated 95.7 mL/min (>60); MAGNESIUM 1.6 mg/dL (1.6-3.0); POTASSIUM 4.3 mmol/L (3.5-5.1)
== END 2016-09-01 16:34 | DRG 871 ==
LOC: CED 18:37 → CEDOF 18:38 → C5B 08-24 20:00
PROVIDERS: Emergency Medicine; Family Medicine; Internal Medicine; Internal Medicine Cardiovascular Disease; Orthopaedic Surgery
PROC: B246ZZZ Ultrasonography of Right and Left Heart (ICD-10-PCS; principal; 2016-08-25)
PROC: 0S9C3ZX Drainage of Right Knee Joint, Percutaneous Approach, Diagnostic (ICD-10-PCS; 2016-08-28)
PROC: 3E0U33Z Introduction of Anti-inflammatory into Joints, Percutaneous Approach (ICD-10-PCS; 2016-08-30)
PROC: 3E0U3BZ Introduction of Anesthetic Agent into Joints, Percutaneous Approach (ICD-10-PCS; 2016-08-30)
PROC: 02HV33Z Insertion of Infusion Device into Superior Vena Cava, Percutaneous Approach (ICD-10-PCS; 2016-08-30)
PROC: B518YZA Fluoroscopy of Superior Vena Cava using Other Contrast, Guidance (ICD-10-PCS; 2016-08-30)
PROC: B548ZZA Ultrasonography of Superior Vena Cava, Guidance (ICD-10-PCS; 2016-08-30)
DX: A41.81 Sepsis due to Enterococcus (principal); J15.9 Unspecified bacterial pneumonia; J96.00 Acute respiratory failure, unspecified whether with hypoxia or hypercapnia; I47.2 Ventricular tachycardia; I50.33 Acute on chronic diastolic (congestive) heart failure; G92 Toxic encephalopathy; C34.91 Malignant neoplasm of unspecified part of right bronchus or lung; I48.2 Chronic atrial fibrillation; I50.22 Chronic systolic (congestive) heart failure; J44.9 Chronic obstructive pulmonary disease, unspecified; R65.20 Severe sepsis without septic shock; M11.261 Other chondrocalcinosis, right knee; G47.33 Obstructive sleep apnea (adult) (pediatric); G89.29 Other chronic pain; I25.10 Atherosclerotic heart disease of native coronary artery without angina pectoris; I73.9 Peripheral vascular disease, unspecified; E78.5 Hyperlipidemia, unspecified; Z79.01 Long term (current) use of anticoagulants; Z79.82 Long term (current) use of aspirin; Z91.81 History of falling; Z88.8 Allergy status to other drugs, medicaments and biological substances; N40.0 Benign prostatic hyperplasia without lower urinary tract symptoms; M10.9 Gout, unspecified; I71.4 Abdominal aortic aneurysm, without rupture; Z96.641 Presence of right artificial hip joint; Z96.611 Presence of right artificial shoulder joint; Z98.42 Cataract extraction status, left eye; Z98.41 Cataract extraction status, right eye
CPT/HCPCS: 36415; 36600; 70450; 71010; 71250; 73560; 76937; 77001; 80048; 80053; 80061; 80076; 80202; 81003; 82140; 82308; 82550; 82553; 82803; 82947; 83605; 83735; 83880; 84132; 84439; 84443; 84484; 85025; 85027; 85610; 85730; 87040; 87070; 87186; 87205; 87804; 89051; 89060; 92610; 93005; 93306; 93971; 94640; 94660; 94760; 96365; 97110; 97116; 97163; 97167; 97530; 97535; 99285; C1751; G8978-GP; G8979-GP; G8980-GP; G8987-GO; G8988-GO; G8996-GN; G8997-GN; G8998-GN; J0290; J0692; J1642; J1940; J2405; J2543; J3260; J3370; J3475